=== PATIENT | male | born 1995 | race Two or more races ===

== ENCOUNTER 2020-04-28 14:06 | Outpatient (REF) | payer OTHER, SELFPAY ==
[2020-04-28 14:40] LABS: COVID-19 Test Negative (Negative)
== END 2020-04-28 14:07 | disposition home or self-care (01) ==
LOC: HO.EMPCOV 14:06
PROVIDERS: Visit Provider Internal Medicine
DX: Z20.828 Contact with and (suspected) exposure to other viral communicable diseases (principal)
CPT/HCPCS: 87635; C9803

== ENCOUNTER 2020-05-05 09:27 | Outpatient (REF) | payer OTHER, SELFPAY ==
[2020-05-05 09:46] LABS: COVID-19 Test Negative (Negative)
== END 2020-05-05 09:28 | disposition home or self-care (01) ==
LOC: HO.EMPCOV 09:27
PROVIDERS: Visit Provider Internal Medicine
DX: Z20.828 Contact with and (suspected) exposure to other viral communicable diseases (principal)
CPT/HCPCS: 87635; C9803

== ENCOUNTER 2020-05-12 09:31 | Outpatient (REF) | payer OTHER, SELFPAY ==
[2020-05-12 09:45] LABS: COVID-19 Test Positive (Negative)
== END 2020-05-12 09:32 | disposition home or self-care (01) ==
LOC: HO.EMPCOV 09:31
PROVIDERS: PCP Internal Medicine; Visit Provider Internal Medicine
DX: Z20.828 Contact with and (suspected) exposure to other viral communicable diseases (principal)
CPT/HCPCS: 87635; C9803

== ENCOUNTER 2020-06-18 09:37 | Outpatient (REF) | payer OTHER, SELFPAY ==
[2020-06-20 11:06] LABS: SARS-COV-2 PCR UMBRL NEGATIVE
== END 2020-06-18 09:38 | disposition home or self-care (01) ==
LOC: HO.LAB 09:37
PROVIDERS: Visit Provider Internal Medicine
DX: Z20.822 Contact with and (suspected) exposure to COVID-19 (principal)
CPT/HCPCS: 36415; C9803; U0003

== ENCOUNTER 2020-07-28 09:43 | Outpatient (REF) | payer OTHER, SELFPAY ==
[2020-07-28 10:13] LABS: COVID-19 Test Negative (Negative)
== END 2020-07-28 09:44 | disposition home or self-care (01) ==
LOC: HO.EMPCOV 09:43
PROVIDERS: Visit Provider Internal Medicine
DX: Z20.822 Contact with and (suspected) exposure to COVID-19 (principal)
CPT/HCPCS: 36415; 87635; C9803

== ENCOUNTER 2020-12-01 21:56 | Emergency (ER) | payer OTHER, SELFPAY ==
[2020-12-01 22:15] VITALS: BP 137/83; PULSE 112; RESP 16; TEMP 36.3; O2SAT 96; BMI 40.2
--- NOTE | 2020-12-01 22:20 | ED.ABDPAIN ---
HPI - Abdominal Pain General Chief Complaint: Abdominal Pain Stated Complaint: Abdominal pain Time Seen by Provider: 12/01/20 22:05 Source: patient Mode of arrival: ambulatory Limitations: no limitations History of Present Illness HPI narrative: Patient comes emergency room complaining of abdominal pain. Patient states it is a burning sensation, radiating from the epigastric upwards. Patient denies chest pain. The discomfort started this morning, has been intermittent, worse with meals. Patient denies vomiting or diarrhea, no other abdominal pain other than the epigastric burning. Patient denies UTI symptoms Related Data Previous Rx's Medication Instructions Recorded omeprazole 20 mg PO DAILY #14 cap 12/01/20 Allergies Allergy/AdvReac Type Severity Reaction Status Date / Time No Known Allergies Allergy Unverified 02/14/20 17:01 Review of Systems Review of Systems Constitutional : No Weight loss, No Fever, No Chills, No Night Sweats, No Fatigue, No Malaise ENT/Mouth : No Hearing loss, No Ear Pain, No Nasal Congestion, No Sinus Pain, No Hoarseness, No sore throat, No Rhinorrhea, No Swallowing Difficulty Eyes: No Eye Pain, No Swelling, No Redness, No Foreign Body, No Discharge, No Vision Changes Cardiovascular : No Chest Pain, No SOB, No Dyspnea on Exertion, No Orthopnea, No Edema, No Palpitations Respiratory : No Cough, No Sputum, No Wheezing, No Smoke Exposure, No Dyspnea Gastrointestinal : No Nausea, No Vomiting, No Diarrhea, No Constipation, complaining of epigastric burning sensation, No Hematochezia, No Melena Genitourinary : no irregular bleeding, No Dysuria, No Urinary Frequency, No Hematuria, No Urinary Incontinence, No Urgency, No Flank Pain, No Urinary Flow Changes, No Hesitancy Musculoskeletal : No joint pain, No Myalgias, No Joint Swelling Skin : No Skin Lesions, No rash Neuro : No Weakness, No Numbness, No Paresthesias, No Loss of Consciousness, No Dizziness, No Headache Psych : No Anxiety/Panic, No Depression, No SI/HI/AH/VH, No Social Issues, Heme/Lymph: No Bruising, No Bleeding,No Lymphadenopathy Endocrine : No Polyuria, No Polydipsia, No Temperature Intolerance Physical Exam Vital Signs: Vital Signs: Last Vital Signs Temp 97.3 F 12/01/20 22:15 Pulse 112 H 12/01/20 22:15 Resp 16 12/01/20 22:15 BP 137/83 12/01/20 22:15 Pulse Ox 96 12/01/20 22:15 Body Mass Index 40.2 Appearance: Alert. Oriented X3. No acute distress. Eyes: Pupils equal, round and reactive to light. ENT: Pharynx normal. Neck: Normal inspection. Neck supple. No lymph nodes noted. No crepitus CVS: Normal heart rate and rhythm. Pulses normal. Normal S1 and S2 Respiratory: No respiratory distress. Breath sounds normal. No Wheezing. No rales Abdomen: Soft and nontender. No rigidity. No distention. negative Wolfe sign, no guarding, negative rebound Skin: Skin warm and dry. Normal skin color. Normal skin turgor. Extremities: No lower extremity edema. No lower extremity edema. No Lacerations. No Rash Neuro: Oriented X 3. No motor deficit. No sensory deficit. Moving all extermities. No slurred speech. Course Course Course Narrative: patient states that he had significant relief with a GI cocktail. Patient has chronic leukocytosis. patient will be started on omeprazole, instructed to follow-up with his primary care physician. MDM - Abdominal Pain Lab Data Result diagrams: 12/01/20 22:34 12/01/20 22:34 Labs: Lab Results 12/01/20 12/01/20 Range/Units 22:34 22:34 WBC 14.8 H (4.8-10.8) X10*3/uL RBC 5.12 (4.60-5.80) X10*6/uL Hgb 14.7 (14.0-18.0) g/dl Hct 44.6 (42-52) % MCV 87.1 (80-98) fL MCH 28.7 (27.0-33.0) pg MCHC 33.0 (31.0-36.0) g/dl RDW 12.7 (11.0-16.0) % Plt Count 413 H (160-400) X10*3/uL MPV 9.3 L (9.4-12.4) fL Immature Gran % (Auto) 0.6 H (0.0-0.4) % Neut % (Auto) 78.6 H (45-73) % Lymph % (Auto) 13.9 L (20-40) % [place] % (Auto) 5.1 (2-11) % Eos % (Auto) 1.5 (0-4) % Baso % (Auto) 0.3 (0-2) % Lymph # (Auto) 2.1 (1.2-4.9) X10*3/uL [place] # (Auto) 0.8 (0.1-1.2) X10*3/uL Eos # (Auto) 0.2 (0.0-0.4) X10*3/uL Baso # (Auto) 0.0 (0.0-0.2) X10*3/uL Abs Immat Gran (auto) 0.09 H (0.00-0.03) X10*3/uL Absolute Neuts (auto) 11.6 H (2.0-8.3) X10*3/uL Absolute Nucleated RBC 0.000 (0.0-0.012) X10*3/uL Nucleated RBC % (auto) 0.0 (0.0-0.2) /100WBC Sodium 139 (135-145) mmol/L Potassium 3.9 (3.3-5.1) mmol/L Chloride 104 (96-108) mmol/L Carbon Dioxide 23 (22-29) mmol/L Anion Gap 16 (12-20) BUN 10 (9-16) mg/dL Creatinine 0.98 (0.5-1.4) mg/dL Estim Creat Clear Calc 140.6 Estimated GFR > 60 Random Glucose 116 H (60-115) mg/dL Calcium 10.1 (8.4-10.2) mg/dL Total Bilirubin 0.7 (0.0-1.0) mg/dL Direct Bilirubin 0.2 (0.0-0.5) mg/dL AST 19 (5-37) U/L ALT 34 (0-40) U/L Alkaline Phosphatase 68 (39-117) U/L Total Protein 8.9 H (6.5-8.0) g/dL Albumin 4.4 (3.5-5.0) g/dL Lipase 26 (8-78) U/L Discharge Plan Discharge Clinical Impression: Gastritis Qualifiers: Gastritis type: unspecified gastritis Chronicity: acute Gastritis bleeding: without bleeding Qualified Code(s): K29.00 - Acute gastritis without bleeding Patient Disposition: Home, Self-Care Instructions: Gastritis (ED), Diet for Stomach Ulcers and Gastritis (ED) Additional Instructions: Please follow-up with your primary care physician tomorrow. If you have any worsening or new symptoms, please return to the emergency room or call 911 Prescriptions: New omeprazole 20 mg capsule,delayed release(DR/EC) 20 mg PO DAILY Qty: 14 RF: 0 PMFSH Past Medical History Medical History No known health problems Surgical History No significant past surgical history Social History Social History Patient Tobacco Use Status: Current someday Tobacco user Use of substances other than those prescribed or required for medical reasons: No Advance Directives: No
[2020-12-01] MEDS: Lidocaine HCl Viscous 2 % 15 ML SOLUTION MUCOUS MEM (22:28)
[2020-12-01] MEDS: Famotidine 20 MG TABLET PO (22:28)
[2020-12-01] MEDS: Magnesium Hydrox/Alum Hydrox 30 ML ORAL.SUSP PO (22:28)
[2020-12-01 22:39] LABS: MANUAL DIFF FLAG NO
[2020-12-01 22:40] LABS: Basophils Percent Auto 0.3 % (0-2); Eosinophils Absolute Auto 0.2 X10*3/uL (0.0-0.4); Eosinophils Percent Auto 1.5 % (0-4); Hematocrit 44.6 % (42-52); Hemoglobin 14.7 g/dl (14.0-18.0); Imm Gran Abs Auto 0.09 X10*3/uL (0.00-0.03); Imm Gran Pct Auto 0.6 % (0.0-0.4); Lymphocytes Absolute Auto 2.1 X10*3/uL (1.2-4.9); Lymphocytes Percent Auto 13.9 % (20-40); Mean Corpuscular Hemoglobin 28.7 pg (27.0-33.0); Mean Corpuscular Volume 87.1 fL (80-98); Mean Platelet Volume 9.3 fL (9.4-12.4); Monocytes Absolute Auto 0.8 X10*3/uL (0.1-1.2); Monocytes Percent Auto 5.1 % (2-11); Neutrophils Absolute Auto 11.6 X10*3/uL (2.0-8.3); Neutrophils Percent Auto 78.6 % (45-73); Platelet Count 413 X10*3/uL (160-400); Red Blood Count 5.12 X10*6/uL (4.60-5.80); Red Cell Distribution Width 12.7 % (11.0-16.0); White Blood Count 14.8 X10*3/uL (4.8-10.8)
[2020-12-01 23:03] LABS: Alanine Aminotransferase 34 U/L (0-40); Albumin Level 4.4 g/dL (3.5-5.0); Alkaline Phosphatase 68 U/L (39-117); Anion Gap 16 (12-20); Aspartate Amino Transferase 19 U/L (5-37); Bilirubin Direct 0.2 mg/dL (0.0-0.5); Bilirubin Total 0.7 mg/dL (0.0-1.0); Blood Urea Nitrogen 10 mg/dL (9-16); Calcium 10.1 mg/dL (8.4-10.2); Carbon Dioxide 23 mmol/L (22-29); Chloride 104 mmol/L (96-108); Creatinine Clr Calc Pharmacy 140.6; Estimated Glomerular Filt Rate > 60; Glucose Random 116 mg/dL (60-115); Lipase 26 U/L (8-78); Potassium 3.9 mmol/L (3.3-5.1); Sodium 139 mmol/L (135-145); Total Protein 8.9 g/dL (6.5-8.0)
== END 2020-12-02 00:04 | disposition home or self-care (01) ==
PROVIDERS: Emergency Provider Emergency Medicine; PCP Internal Medicine
DX: K29.00 Acute gastritis without bleeding (principal); D72.829 Elevated white blood cell count, unspecified
CPT/HCPCS: 36415; 80048; 80076; 83690; 85025; 99283

== ENCOUNTER 2020-12-12 08:47 | Outpatient (REF) | payer OTHER, SELFPAY ==
--- NOTE | ~2020-12-12 | FL_ITS ---
EXAMINATION: XR GI SERIES CLINICAL INFORMATION: Peptic ulcer disease COMPARISON: None TECHNIQUE: Upper GI was performed using thin and thick barium and effervescent granules FINDINGS: There is mild gastroesophageal reflux. The esophagus is otherwise normal appearing. No esophageal hernia is seen. The stomach is normal-appearing. There is mucosal irregularity of the duodenal bulb, irregular shape and the duodenal bulb never fully distends with air. Appearance is questionable for duodenal bulb ulcer. FLUOROSCOPY TIME: 1.2 min DOSE AREA PRODUCT: 19 manriquez per centimeter squared. 26 saved fluoroscopic images FL/FL upper GI series IMPRESSION: Question duodenal bulb ulcer. Mild gastroesophageal reflux.
== END 2020-12-12 08:48 | disposition home or self-care (01) ==
LOC: HO.XRAY 08:47
PROVIDERS: PCP Internal Medicine; Visit Provider Internal Medicine
DX: K27.9 Peptic ulcer, site unspecified, unspecified as acute or chronic, without hemorrhage or perforation (principal)
CPT/HCPCS: 74240

== ENCOUNTER 2020-12-30 10:12 | Outpatient (REF) | payer OTHER, SELFPAY ==
[2020-12-30 10:14] LABS: MANUAL DIFF FLAG NO
[2020-12-30 10:52] LABS: Basophils Absolute Auto 0.1 X10*3/uL (0.0-0.2); Basophils Percent Auto 0.6 % (0-2); Eosinophils Absolute Auto 0.3 X10*3/uL (0.0-0.4); Eosinophils Percent Auto 2.6 % (0-4); Hematocrit 42.2 % (42-52); Hemoglobin 13.8 g/dl (14.0-18.0); Imm Gran Abs Auto 0.09 X10*3/uL (0.00-0.03); Imm Gran Pct Auto 0.9 % (0.0-0.4); Lymphocytes Percent Auto 29.7 % (20-40); Mean Corpuscular HGB Conc 32.7 g/dl (31.0-36.0); Mean Corpuscular Hemoglobin 29.4 pg (27.0-33.0); Mean Corpuscular Volume 89.8 fL (80-98); Mean Platelet Volume 10.6 fL (9.4-12.4); Monocytes Absolute Auto 0.7 X10*3/uL (0.1-1.2); Monocytes Percent Auto 7.1 % (2-11); Neutrophils Percent Auto 59.1 % (45-73); Platelet Count 383 X10*3/uL (160-400); Red Cell Distribution Width 12.6 % (11.0-16.0); White Blood Count 10.1 X10*3/uL (4.8-10.8)
[2020-12-30 11:02] LABS: Glucose Urine UA NEG (NEG); Leukocyte Esterase Urine NEG (NEG); Nitrite Urine NEG (NEG); Specific Gravity - Urine >= 1.030 (1.005-1.025); Urine Blood NEG (NEG); Urine Ketones NEG (NEG); Urine Protein TRACE MG/DL (NEG-TRACE)
[2020-12-30 11:04] LABS: Appearance Urine CLEAR; Color Urine YELLOW
[2020-12-30 11:23] LABS: Alanine Aminotransferase 29 U/L (0-40); Albumin Level 4.2 g/dL (3.5-5.0); Alkaline Phosphatase 62 U/L (39-117); Anion Gap 14 (12-20); Aspartate Amino Transferase 19 U/L (5-37); Bilirubin Total 0.3 mg/dL (0.0-1.0); Blood Urea Nitrogen 14 mg/dL (9-16); Calcium 9.4 mg/dL (8.4-10.2); Carbon Dioxide 27 mmol/L (22-29); Chloride 103 mmol/L (96-108); Cholesterol 129 mg/dL; Estimated Glomerular Filt Rate > 60; Glucose Fasting 88 mg/dL (60-99); HDL Cholesterol 29 mg/dL; LDL Cholesterol Calculated 75 mg/dl; Potassium 4.7 mmol/L (3.3-5.1); Sodium 139 mmol/L (135-145); Total Protein 8.2 g/dL (6.5-8.0); Triglycerides 128 mg/dL
== END 2020-12-30 10:13 | disposition home or self-care (01) ==
LOC: HO.LNP 10:12
PROVIDERS: Visit Provider Internal Medicine
DX: Z00.00 Encounter for general adult medical examination without abnormal findings (principal); E78.6 Lipoprotein deficiency; D72.829 Elevated white blood cell count, unspecified
CPT/HCPCS: 80053; 80061; 81003; 85025

== ENCOUNTER 2021-04-29 11:58 | Day surgery (SDC) | payer OTHER, SELFPAY ==
--- NOTE | 2021-04-28 14:50 | P.CONAN_ITS ---
Documented by User: Sara Ariza NP 04/28/21 14:51 HPI - Anesthesia Eval Consult details Narrative: 25yo M for Upper Endoscopy [facility] Past Medical History Medical History No known health problems Surgical History Surgical History No significant past surgical history Social History Social History Patient Tobacco Use Status: Current someday Tobacco user Use of substances other than those prescribed or required for medical reasons: No Are you DNR?: No Advance Directives: No Advance Directives Information Provided: Yes Recently lost weight without trying: Yes How much weight loss: 14-23 pounds Nutrition Risks: No Nutritional Risk Meds Allergies Allergy/AdvReac Type Severity Reaction Status Date / Time No Known Allergies Allergy Unverified 02/14/20 17:01 Exam Exam Date and Time: April 28, 2021 1450 Pertinent Lab Results Pertinent Lab Results: Laboratory Tests 12/30/20 12/30/20 07:50 07:50 WBC 10.1 Hgb 13.8 L Hct 42.2 Plt Count 383 Sodium 139 Potassium 4.7 D Chloride 103 Carbon Dioxide 27 BUN 14 Creatinine 0.86 Assessment and Plan Assessment Anesthesia Assessment: Chart Reviewed Documented by User: Eliza De Dios MD 04/29/21 13:04 [facility] Past Medical History Medical History No known health problems Family History Family history of problems with anesthesia: No Surgical History Surgical History No significant past surgical history History of Problems with Anesthesia: No Social History Social History Patient Tobacco Use Status: Current someday Tobacco user Use of substances other than those prescribed or required for medical reasons: No Are you DNR?: No Advance Directives: No Advance Directives Information Provided: Yes Recently lost weight without trying: Yes How much weight loss: 14-23 pounds Nutrition Risks: No Nutritional Risk Meds Allergies Allergy/AdvReac Type Severity Reaction Status Date / Time No Known Allergies Allergy Unverified 02/14/20 17:01 Exam Airway Mallampati Class: I TM Dist: >3cm Neck ROM: Full Heart: rrr Lungs: cta Assessment and Plan Assessment Anesthesia Assessment: Anesthesia Plan Discussed and Chart Reviewed Final Anesthetic Review Family History of Problems with Anesthesia: No History of Problems with Anesthesia: No NPO: Yes ASA Class: II Final Preanesthetic Review: No Changes in Pt Med Stat and Consent Obtained/Reviewed Patient Risk: Intermediate Procedure Risk: Intermediate Anesthetic Plan Anesthetic Plan: MAC: Disposition: Standard PACU
[2021-04-29 12:25] VITALS: BMI 38.7
[2021-04-29 12:35] VITALS: BP 135/85; PULSE 94; RESP 16; TEMP 36.9; O2SAT 96
[2021-04-29] MEDS: Lactated Ringers 1,000 ML 100 ML IVCONT (12:50)
--- NOTE | 2021-04-29 13:11 | MHC.SHP ---
Pre-Procedural Eval Section A Date of Service: 04/29/21 The patient is an INPATIENT: No Changes since office visit: No Cold of Flu in the past 2 weeks, No New Medical Problems, No Changes in Medication and No Patient answered all questions The History & Physical has been completed within 30 days and I have reviewed it.: Yes Section B Chief Complaint: Abnormal Findings, Epigastric Pain Allergies: Allergies Allergy/AdvReac Type Severity Reaction Status Date / Time No Known Allergies Allergy Unverified 02/14/20 17:01 Plan I have reviewed the history and physical and performed a pertinent physical examination on my patient. No changes have occurred unless specified.
--- NOTE | 2021-04-29 13:28 | P.BOP_ITS ---
Brief Operative Note Date of Service: 04/29/21 Pre-op diagnosis: abnormall ugi Post-op diagnosis: same Procedure: upper endoscopy Surgeon: Ethan Peres Anesthesia: MAC Was an Conservation Assistant used for this Procedure?: No Estimated blood loss (mL): 2 Pathology: other (bxs antrum, egj) Condition: stable Disposition: PACU
[2021-04-29 13:31] VITALS: BP 105/63; PULSE 93; RESP 12; TEMP 36.5; O2SAT 96
[2021-04-29 13:46] VITALS: BP 112/68; PULSE 97; RESP 18; TEMP 36.5; O2SAT 96
--- NOTE | 2021-04-29 15:17 | OP_ITS ---
SURGEON: Ethan Peres MD INDICATIONS: Abnormal upper GI series. PREOPERATIVE DIAGNOSIS: POSTOPERATIVE DIAGNOSIS: PROCEDURE PERFORMED: Upper endoscopy with biopsy. ESTIMATED BLOOD LOSS: COMPLICATIONS: ANESTHESIA: ASSISTANTS: SPECIMENS: MEDICATIONS: Monitored anesthesia care. DESCRIPTION OF PROCEDURE: History and physical was performed. The risks and benefits of the procedure were explained to the patient. Informed consent was obtained. The patient was placed in left lateral decubitus position. The Olympus video gastroscope was introduced into the esophagus, stomach, and duodenum. Examination was performed. The scope was removed. He tolerated the procedure well and was taken to Recovery in stable condition. FINDINGS: Esophagus: The esophagus was normal. There was no esophagitis. The EG junction was slightly irregular. This was biopsied. There was no evidence of Marinelli's esophagus. Stomach: The stomach was normal. Antral biopsies were obtained to rule out H pylori. Duodenum: The bulb was carefully examined and showed no evidence of ulceration or scarring. The 2nd portion of the duodenum was examined. The major papilla was identified and the anatomy appeared normal. IMPRESSION: Normal upper endoscopy. RECOMMENDATION: Follow up the biopsy results. MD DAVID Souza/ORI / [id number] MTDD
== END 2021-04-29 14:41 | disposition home or self-care (01) ==
PROVIDERS: PCP Internal Medicine; Visit Provider Internal Medicine Gastroenterology
PROC: 0DJ08ZZ Inspection of Upper Intestinal Tract, Via Natural or Artificial Opening Endoscopic (ICD-10-PCS; CPT 43235; principal; 2021-04-29 13:00)
DX: R93.3 Abnormal findings on diagnostic imaging of other parts of digestive tract (principal); R10.13 Epigastric pain; Z79.899 Other long term (current) drug therapy
CPT/HCPCS: 43239; 88305; 88342; J2250

== ENCOUNTER 2021-06-07 12:34 | Outpatient (REF) | payer OTHER, SELFPAY ==
[2021-06-07 13:33] LABS: COVID-19 Test Negative (Negative)
== END 2021-06-07 12:35 | disposition home or self-care (01) ==
LOC: HO.LAB 12:34
PROVIDERS: Visit Provider Internal Medicine
DX: Z20.822 Contact with and (suspected) exposure to COVID-19 (principal)
CPT/HCPCS: 87635; C9803

== ENCOUNTER 2022-02-26 10:58 | Outpatient (REF) | payer OTHER, SELFPAY ==
[2022-02-26 11:03] LABS: MANUAL DIFF FLAG NO
[2022-02-26 11:55] LABS: Basophils Absolute Auto 0.1 X10*3/uL (0.0-0.2); Basophils Percent Auto 1.1 % (0-2); Eosinophils Absolute Auto 0.2 X10*3/uL (0.0-0.4); Eosinophils Percent Auto 2.3 % (0-4); Hematocrit 41.7 % (42.0-52.0); Hemoglobin 13.7 g/dl (14.0-18.0); Imm Gran Abs Auto 0.08 X10*3/uL (0.00-0.03); Imm Gran Pct Auto 0.9 % (0.0-0.4); Lymphocytes Absolute Auto 3.1 X10*3/uL (1.2-4.9); Lymphocytes Percent Auto 35.3 % (20-40); Mean Corpuscular HGB Conc 32.9 g/dl (31.0-36.0); Mean Corpuscular Hemoglobin 29.3 pg (27.0-33.0); Mean Corpuscular Volume 89.3 fL (80.0-98.0); Mean Platelet Volume 10.3 fL (9.4-12.4); Monocytes Absolute Auto 0.8 X10*3/uL (0.1-1.2); Monocytes Percent Auto 8.6 % (2-11); Neutrophils Absolute Auto 4.6 x10*3/uL (2.0-8.3); Neutrophils Percent Auto 51.8 % (45-73); Platelet Count 427 X10*3/uL (160-400); Red Blood Count 4.67 X10*6/uL (4.60-5.80); Red Cell Distribution Width 12.8 % (11.0-16.0); White Blood Count 8.8 X10*3/uL (4.8-10.8)
[2022-02-26 12:16] LABS: Alanine Aminotransferase 39 U/L (0-40); Albumin Level 4.2 g/dL (3.5-5.0); Alkaline Phosphatase 53 U/L (39-117); Anion Gap 14 (12-20); Aspartate Amino Transferase 25 U/L (5-37); Bilirubin Total 0.3 mg/dL (0.0-1.0); Blood Urea Nitrogen 16 mg/dL (9-16); Calcium 9.4 mg/dL (8.4-10.2); Carbon Dioxide 26 mmol/L (22-29); Chloride 105 mmol/L (96-108); Cholesterol 145 mg/dL; Estimated Glomerular Filt Rate > 60; Glucose Fasting 89 mg/dL (60-99); HDL Cholesterol 31 mg/dL; LDL Cholesterol Calculated 93 mg/dl; Potassium 4.1 mmol/L (3.3-5.1); Sodium 141 mmol/L (135-145); Total Protein 8.5 g/dL (6.5-8.0); Triglycerides 106 mg/dL
== END 2022-02-26 10:59 | disposition home or self-care (01) ==
LOC: HO.LNP 10:58
PROVIDERS: Visit Provider Internal Medicine
DX: Z00.00 Encounter for general adult medical examination without abnormal findings (principal); D72.829 Elevated white blood cell count, unspecified; E78.6 Lipoprotein deficiency
CPT/HCPCS: 80053; 80061; 85025

== ENCOUNTER 2022-03-04 10:51 | Outpatient (REF) | payer OTHER, SELFPAY ==
[2022-03-04 11:41] LABS: Appearance Urine Clear; Color Urine Yellow; Glucose Urine UA Negative (Negative); Leukocyte Esterase Urine Negative (Negative); Nitrite Urine Negative (Negative); PH 6.5 (5.0-9.0); Specific Gravity - Urine 1.015 (1.005-1.025); Urine Blood Negative (Negative); Urine Ketones Negative (Negative); Urine Protein Negative (Neg-Trace)
[2022-03-04 11:48] LABS: Bacteria Urine 4+ (None Seen); Hyaline Casts Urine 0-2 /LPF (0-2); RBC Urine 0-2 /HPF (0-2); Squamous Epithelial Cell Urine 0-2 /HPF (0-2); WBC Urine 0-5 /HPF (0-5)
== END 2022-03-04 10:52 | disposition home or self-care (01) ==
LOC: HO.LNP 10:51
PROVIDERS: Visit Provider Internal Medicine
DX: Z00.00 Encounter for general adult medical examination without abnormal findings (principal)
CPT/HCPCS: 81001

== ENCOUNTER 2022-12-08 15:27 | Emergency (ER) | payer OTHER, SELFPAY ==
--- NOTE | 2022-12-08 15:51 | ED_ITS ---
HPI - General Adult General Chief complaint: Urogenital-Male Stated complaint: Discomfort in the genitals area Time Seen by Provider: 12/08/22 17:54 Source: patient, RN notes reviewed and old records reviewed Mode of arrival: ambulatory History of Present Illness HPI narrative: 27-year-old male with no significant past medical history presenting to the ED complaining of foreskin discomfort/pain, inflammation, and slight discharge x 3 days. Patient admits he is sexually active with 1 partner, denies concern for STI. Reports mild dysuria. Denies appreciable lesions, hematuria, abdominal pain, flank pain Onset (ago): day(s) Related Data Previous Rx's Medication Instructions Recorded omeprazole 20 mg capsule,delayed 20 mg PO DAILY #14 caps 12/01/20 release amoxicillin 500 mg capsule 500 mg PO Q8H #30 caps 07/27/21 cefuroxime axetil 250 mg tablet 250 mg PO BID 7 days #14 tabs 12/08/22 clotrimazole 1 % topical cream 1 appl topical BID 2 weeks #45 12/08/22 grams metronidazole 0.75 % topical gel 1 appl topical BID 7 days #45 grams 12/08/22 Allergies Allergy/AdvReac Type Severity Reaction Status Date / Time No Known Allergies Allergy Unverified 12/08/22 15:54 Review of Systems Review of Systems: Constitutional: No Fever, No Chills ENT/Mouth: No Ear Pain, No Nasal Congestion, No sore throat, No Rhinorrhea, No Swallowing Difficulty Cardiovascular: No Chest Pain, No SOB Respiratory: No Cough, No Sputum Gastrointestinal: No Nausea, No Vomiting, No Diarrhea, No Constipation, No Abdominal pain Genitourinary: + Dysuria, No Urinary Frequency, No Hematuria, No Urinary Incontinence/retention, No Flank Pain Musculoskeletal: No joint pain Skin: + Skin Lesions, No rash Neuro: No Weakness, No Numbness, No Paresthesias Yes all other systems are reviewed and are negative Constitutional: Constitutional: Reports as per [facility] Past Medical History Attestation statement: The following information was validated with the patient. Source: old records reviewed Medical History No known health problems Surgical History No significant past surgical history Social History Social History Patient Tobacco Use Status: Current someday Tobacco user Advance Directives: No Advance Directives Information Provided: Yes Physical Exam ED Vital Signs: Vital Signs - 24 hr 12/08/22 15:52 Temperature 97.7 F Pulse Rate 92 Respiratory Rate 16 Blood Pressure 145/89 H Pulse Oximetry 99 Oxygen Delivery Method Room Air BMI result Body Mass Index 41.5 Const General: cooperative, healthy appearing and no acute distress Orientation/consciousness: patient oriented x3 Limitations: no limitations HENMT Head: Yes normal to inspection and Yes atraumatic Ears: hearing grossly normal bilaterally General nose exam: Normal external nose present Face and sinus: Yes normal facial exam Eyes General: appearance normal, both eyes and all related structures EOM: EOMs intact bilaterally Neck Neck: Yes normal visual inspection and Yes no meningeal signs Resp Effort & Inspection: normal respiratory effort and no respiratory distress Cardio Rate: regular rate GI Inspection: Yes normal to inspection Palpation (GI): Soft to palpation, nontender, no guarding and not rigid Other: + inflamed/irritated for skin with maceration & clear/white discharge. No appreciable lesions. Foreskin partially retractable Penis: uncircumcised Skin Rashes: no rashes Wounds: no wounds Neuro General: patient oriented x3, tone normal and no meningeal signs Gait exam (Neuro): Normal gait present Extrem General: Yes normal to inspection Course Course Course Narrative: This is a rapid medical exam: Additional HPI, ROS, PE not included below will be deferred to primary provider. Patient is a 27-year-old male presenting to the emergency department with complaint of discomfort to foreskin, reports redness and swelling. When he attempts to pull back foreskin to clean it, he feels a tearing sensation. Reports burning worsens with urination. Denies history of DM. He is sexually active. Denies fevers. Area not assessed in triage due to privacy concerns. Plan: UA, CT NG urine -UA appears infected > will treat with antibiotics. Gonorrhea/chlamydia negative Results discussed with patient including worrisome signs and symptoms and strict return precautions, and when to return to the emergency department. They verbalized understanding and feel safe for discharge at this time. Medical Decision Making Medical Decision Making MDM Narrative: 27-year-old male with no significant past medical history presenting to the ED complaining of foreskin discomfort/pain, inflammation, and slight discharge x 3 days. On exam vital signs stable, NAD, nontoxic appearing, physical exam as noted above consistent with balanitis. Concern for UTI vs STI. No indication for surgical emergency/circumcision at this time Plan: UA, CT NG, Topical clotrimazole/metronidazole Please refer to course for remaining clinical decision making, interpretation of labs/imaging results, and discussions with consultants and/or family members. Differential Diagnosis Differential Diagnoses: The differential diagnosis associated with the presentation includes As above Lab Data MDM Lab Attestation statement: I reviewed the patient's lab results. Labs: Lab Results 12/08/22 12/08/22 Range/Units 16:18 16:18 Urine Color Yellow Urine Appearance Clear Urine pH 6.0 (5.0-9.0) Ur Specific [place] >= 1.030 H (1.005-1.025) Urine Protein 100 (2+) H (Neg-Trace) mg/dL Urine Glucose (UA) Negative (Negative) mg/dL Urine Ketones Trace (Negative) mg/dL Urine Blood Small (1+) H (Negative) Urine Nitrite Negative (Negative) Ur Leukocyte Esterase Small (1+) H (Negative) Urine RBC 11-20 H (0-2) /HPF Urine WBC 11-20 H (0-5) /HPF Ur Squamous Epith Cells 0-2 (0-2) /HPF Urine Bacteria None Seen (None Seen) Hyaline Casts 0-2 (0-2) /LPF Chlam trachomat DNA PCR NOT DETECTED (Not Detect.) N.gonorrhoeae DNA (PCR) NOT DETECTED (Not Detect.) External Record Review External record reviewed: Inpatient record, Office record, Outpatient record, Prior outpatient labs, Prior outpatient radiology, Primary care record and Outside ED record Tests considered The following testing was considered but not selected: As above Prescription Management I considered prescription management with: Antibiotic Discharge Plan Discharge Clinical Impression: Balanitis, Acute UTI Patient Disposition: Home, Self-Care Instructions: Urinary Tract Infection in Men (DC), Balanitis (ED) Additional Instructions: You have balanitis. Topical clotrimazole and metronidazole will help treat this, mix in a 1:1 ratio Ceftin is an antibiotic to treat a urine infection please take as prescribed until completion Keep foreskin clean. You did test negative for gonorrhea and chlamydia. However follow-up with [facility] for further STI testing If symptoms persist or worsen, your unable to urinate of worsening swelling, or are unable to retract the foreskin return to the ED Prescriptions: New clotrimazole 1 % cream 1 appl topical BID 14 Days Qty: 45 0RF metronidazole 0.75 % gel 1 appl topical BID 7 Days Qty: 45 0RF cefuroxime axetil 250 mg tablet 250 mg PO BID 7 Days Qty: 14 0RF No Action omeprazole 20 mg capsule,delayed release(DR/EC) 20 mg PO DAILY Qty: 14 0RF amoxicillin 500 mg capsule 500 mg PO Q8H Qty: 30 0RF Referrals: [facility] [Provider Group] Wayne Bain MD [Primary Care Provider] - Stand Alone Forms: Work/School Release Interventions: ED Discharge Assessment Last Done: 12/08/22 18:43 Discharge Date/Time: 12/08/22 18:43
[2022-12-08 15:52] VITALS: BP 145/89; PULSE 92; RESP 16; TEMP 36.5; O2SAT 99; BMI 41.5
[2022-12-08 16:29] LABS: Appearance Urine Clear; Color Urine Yellow; Glucose Urine UA Negative (Negative); Leukocyte Esterase Urine Small (1+) (Negative); Nitrite Urine Negative (Negative); Specific Gravity - Urine >= 1.030 (1.005-1.025); UMIC TRIGGER UACC YES; Urine Blood Small (1+) (Negative); Urine Ketones Trace mg/dL (Negative); Urine Protein 100 (2+) mg/dL (Neg-Trace)
[2022-12-08 16:31] LABS: Bacteria Urine None Seen (None Seen); Hyaline Casts Urine 0-2 /LPF (0-2); Squamous Epithelial Cell Urine 0-2 /HPF (0-2); UACC Culture Trigger YES
[2022-12-08 18:03] LABS: CT PCR NOT DETECTED (Not Detect.); NG PCR NOT DETECTED (Not Detect.)
== END 2022-12-08 18:43 | disposition home or self-care (01) ==
PROVIDERS: Registered Nurse Emergency; Emergency Provider Emergency Medicine Emergency Medical Services; PCP Internal Medicine
DX: N48.1 Balanitis (principal); N39.0 Urinary tract infection, site not specified; B95.1 Streptococcus, group B, as the cause of diseases classified elsewhere
CPT/HCPCS: 0353U; 81001; 87086; 87147; 99282; 99283

== ENCOUNTER 2023-02-08 11:14 | Outpatient (REF) | payer OTHER, SELFPAY ==
[2023-02-08 11:38] LABS: Appearance Urine Clear; Color Urine Yellow; Glucose Urine UA Negative (Negative); Leukocyte Esterase Urine Trace (Negative); Nitrite Urine Negative (Negative); PH 5.5 (5.0-9.0); Specific Gravity - Urine 1.025 (1.005-1.025); UMIC TRIGGER UA YES; Urine Blood Trace (Negative); Urine Ketones Negative (Negative); Urine Protein Trace mg/dL (Neg-Trace)
[2023-02-08 11:45] LABS: Bacteria Urine None Seen (None Seen); Hyaline Casts Urine 0-2 /LPF (0-2); RBC Urine 0-2 /HPF (0-2); Squamous Epithelial Cell Urine 0-2 /HPF (0-2)
== END 2023-02-08 11:15 | disposition home or self-care (01) ==
LOC: HO.LNP 11:14
PROVIDERS: Visit Provider Internal Medicine
DX: R31.9 Hematuria, unspecified (principal)
CPT/HCPCS: 81001; 87086

== ENCOUNTER 2023-03-04 10:53 | Outpatient (REF) | payer OTHER, SELFPAY ==
[2023-03-04 11:17] LABS: Alanine Aminotransferase 32 U/L (0-40); Albumin Level 3.9 g/dL (3.5-5.0); Alkaline Phosphatase 59 U/L (39-117); Anion Gap 13 (12-20); Aspartate Amino Transferase 26 U/L (5-37); Bilirubin Total 0.3 mg/dL (0.0-1.0); Blood Urea Nitrogen 11 mg/dL (9-16); Carbon Dioxide 24 mmol/L (22-29); Chloride 110 mmol/L (96-108); Cholesterol 127 mg/dL (<200); Estimated Glomerular Filt Rate > 60; Glucose Fasting 91 mg/dL (60-99); HDL Cholesterol 36 mg/dL (>40); LDL Cholesterol Calculated 69 mg/dL (<100); Potassium 4.1 mmol/L (3.3-5.1); Sodium 143 mmol/L (135-145); Total Protein 8.2 g/dL (6.5-8.0); Triglycerides 111 mg/dL (<150)
== END 2023-03-04 10:54 | disposition home or self-care (01) ==
LOC: HO.LNP 10:53
PROVIDERS: Visit Provider Internal Medicine
DX: Z00.00 Encounter for general adult medical examination without abnormal findings (principal); D72.829 Elevated white blood cell count, unspecified; E78.6 Lipoprotein deficiency
CPT/HCPCS: 80053; 80061; 85025

== ENCOUNTER 2023-05-12 14:36 | Outpatient (AMB) | payer OTHER, SELFPAY ==
--- NOTE | 2023-05-12 14:49 | A.OFFVIS_ITS ---
Intake Vital Signs 3 05/12/23 15:00 Height 5 ft 7 in Weight 257 lb BMI 40.2 BP 145/87 H Blood Pressure Location Lt brachial Position Sitting Pulse 80 Intake Visit Reasons: Infected R great toe Intake Note: Patient is seen in office for evaluation and treatment of infected right great toe. 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 This began in the summer time after having a pedicure. He started having pain and swelling on the medial nail fold but now has pain and swelling in both the medial and lateral nail fold. He was seen by Dr. Bain today and started on oral antibiotics. He has been on antibiotics in the past without significant improvement. The pain seems to increase with walking and prolonged standing. He works in [employer] and is on his feet constantly. He denies fever or chills. [facility] Medical History No known health problems Surgical History No significant past surgical history Social History Patient Tobacco Use Status: Current someday Tobacco user Review of Systems Const All systems reviewed & are unremarkable except as noted in HPI and below Physical Exam Const General: cooperative and no acute distress Nutritional Appearance: well nourished Orientation/consciousness: patient oriented x3 Limitations: no limitations HEENT Head: Yes normocephalic and Yes atraumatic Ears: hearing grossly normal bilaterally Resp Effort & Inspection: normal respiratory effort, no audible wheezes, no cough and no respiratory distress Cardio Jugular venous distension: no JVD GI Inspection: Yes normal to inspection Skin Other: Warm, dry, no rash Neuro General: patient oriented x3 Extrem Other: Right great toe with evidence of both medial lateral ingrown nail segment with surrounding area of erythema and purulent discharge. Nail fold is tender to palpation. No tenderness noted in the proximal nail fold. General: Yes no clubbing, cyanosis or edema Ankle/foot/toe images: 2 1. Right great toe nail infection Assessment & Plan Assessment & Plan (1) Abscess of great toe of right foot: Code(s): L02.611 - Cutaneous abscess of right foot Plan 27-year-old male patient presenting with a painful swollen right great toe found to have an ingrown nail on both the medial and lateral nail folds. There is significant amount of purulence discharge in erythema which would make nail removal under local anesthesia very difficult. I recommended nail excision under MAC plus local as soon as possible. After discussion of the procedure, risks, and benefits, he consents to the excision of right great toe nail. Coding Level of Care Code New Pt Level 4 (56144) Diagnoses Abscess of great toe of right foot L02.611
[2023-05-12 15:00] VITALS: BP 145/87; PULSE 80; BMI 40.2
== END 2023-05-12 15:27 | disposition home or self-care (01) ==
PROVIDERS: PCP Internal Medicine; Referring Provider Internal Medicine; Visit Provider Surgery
DX: L02.611 Cutaneous abscess of right foot (principal)
CPT/HCPCS: 99204

== ENCOUNTER → 2023-05-12 14:36 | Outpatient (BNVA) | payer OTHER, SELFPAY | PROVIDERS: PCP Internal Medicine; Referring Provider Internal Medicine; Visit Provider Surgery | DX: L02.611 Cutaneous abscess of right foot (principal) | CPT/HCPCS: 99202 ==

== ENCOUNTER 2023-05-16 08:00 | Day surgery (SDC) | payer OTHER, SELFPAY ==
[2023-05-16 08:50] VITALS: BMI 40.3
[2023-05-16 09:13] VITALS: BP 134/84; PULSE 97; RESP 16; TEMP 36.6; O2SAT 96
[2023-05-16] MEDS: Lactated Ringers 1,000 ML 100 ML IVCONT (09:18)
--- NOTE | 2023-05-16 09:19 | HO.ANESPROP2 ---
HPI - Anesthesia Eval Consult details Narrative: excision right great toe nail , morbid obesity , heavy alchol and heavy vaping nicotine Anesthesia Pre-Procedure Meds Is the patient on any of the following meds?: Any other SGL-1 drugs or drugs that delay gastric emptying If Yes to any meds - educate patient: Pt education - increased risk of aspiration PMFSH Active Problems Active Problems: All Active Problems (Updated 05/16/23 @ 08:48 by Liz Maradiaga RN) Abscess of great toe of right foot (Acute) Strep pharyngitis (Acute) Family History Family history of problems with anesthesia: No Surgical History Surgical History H/O adenoidectomy History of endoscopy History of Problems with Anesthesia: No Social History Social History Patient Tobacco Use Status: Current everyday Tobacco user Tobacco use type: Smokeless Tobacco Use of substances other than those prescribed or required for medical reasons: No Are you DNR?: No Advance Directives: No Advance Directives Information Provided: Yes Meds Allergies Allergy/AdvReac Type Severity Reaction Status Date / Time No Known Allergies Allergy Verified 05/16/23 08:43 Active Medications: Current Medications Lactated Ringer's (Lr) 1,000 mls @ 100 mls/hr IVCONT .Q10H BURKE Last Admin: 05/16/23 09:18 Dose: 100 mls/hr Home Medications Medication Instructions Recorded Confirmed Last Taken Type cephalexin 500 mg capsule 500 mg PO BID 05/16/23 05/16/23 05/15/23 History Exam Height,Weight and Vital Signs: Height 5 ft 7 in Weight 116.743 kg Last Vital Signs Temp 97.8 F 05/16/23 09:13 Pulse 97 05/16/23 09:13 Resp 16 05/16/23 09:13 BP 134/84 05/16/23 09:13 Pulse Ox 96 05/16/23 09:13 O2 Del Method Room Air 05/16/23 09:13 Airway Mallampati Class: II TM Dist: >3cm Neck ROM: Full Heart: rrr Lungs: cta Assessment and Plan Assessment Anesthesia Assessment: Anesthesia Plan Discussed, Smoking Cess. Discussed and Chart Reviewed Final Anesthetic Review Family History of Problems with Anesthesia: No History of Problems with Anesthesia: No NPO: Yes ASA Class: III (heavy vaping alcohol, morbid obesity) Final Preanesthetic Review: No Changes in Pt Med Stat, Meds/Allgs Chart Reviewed, Consent Obtained/Reviewed and Anes Risks/Benef Reviewed Patient Risk: Intermediate Procedure Risk: Low Anesthetic Plan Anesthetic Plan: GA and MAC: Disposition: Standard PACU
--- NOTE | 2023-05-16 11:27 | MHC.SHP ---
Pre-Procedural Eval Section A Date of Service: 05/16/23 The patient is an INPATIENT: No Changes since office visit: Yes Patient answered all questions; No Cold of Flu in the past 2 weeks, No New Medical Problems and No Changes in Medication The History & Physical has been completed within 30 days and I have reviewed it.: Yes Section B Chief Complaint: Cellulitis of right toe Allergies: Allergies Allergy/AdvReac Type Severity Reaction Status Date / Time No Known Allergies Allergy Verified 05/16/23 08:43 Plan Diagnosis/Plan: Unchanged I have reviewed the history and physical and performed a pertinent physical examination on my patient. No changes have occurred unless specified. Time Spent With Patient Time: Total time managing care of this patient today ____ minutes.
--- NOTE | 2023-05-16 11:53 | P.OP_ITS ---
Operative Note Operative Note Date of Service: 05/16/23 Narrative: Preoperative diagnosis:Ingrown toenail right great toe Postoperative diagnosis: same Procedure: Excision right great toe nail Surgeon: Anthony Gipson MD Hand Violin Maker: Ena Csepedes PA-C Anesthesia: MAC plus local Indications for procedure: 27-year-old male patient presenting with an infected ingrown right great toenail involving both the medial and lateral nail folds. On examination he is exquisitely tender at both locations with no evidence of an abscess in the proximal fold. Operative findings: Ingrown segments in both the medial and lateral nail fold. Specimen: Right great toenail Estimated blood loss: Less than 2 mL Complications: None Procedure details: Patient was brought to the OR placed in a supine position. After administering light sedation patient's right great toe and foot were prepped with Betadine and draped in a sterile fashion. A surgical time-out was called the consent confirmed. Patient received preoperative antibiotics and Venodyne boots were in place. Local anesthesia was infiltrated with a digital block involving the 1st toe. Additional local was placed at the proximal nail fold. Beginning on the lateral nail fold a hemostat was inserted just below the nail matrix over the nail bed from distal to proximal. The nail was then excised using a curved Kate scissors. The nail bed was then cauterized using electrocautery. In a similar fashion the medial nail fold was elevated by inserting a hemostat below the nail matrix and removing the ingrown portion. This was then excised using a curved Kate scissor. The nail bed was then cauterized using electrocautery. Wounds were then packed with iodoform gauze followed by cotton and 1 in Barbara. The patient tolerated the procedure well. Sponge, instrument, and needle counts reported as correct. The patient was transferred to PACU in stable condition.
[2023-05-16 12:00] VITALS: BP 132/73; PULSE 88; RESP 16; TEMP 36.2; O2SAT 95
[2023-05-16 12:15] VITALS: BP 129/75; PULSE 87; RESP 14; O2SAT 97
[2023-05-16 12:30] VITALS: BP 126/76; PULSE 83; RESP 16; TEMP 36.4; O2SAT 97
== END 2023-05-16 13:27 | disposition home or self-care (01) ==
PROVIDERS: PCP Internal Medicine; Visit Provider Surgery
PROC: (CPT 11750; principal; 2023-05-16 10:40)
DX: L60.0 Ingrowing nail (principal); L03.031 Cellulitis of right toe
CPT/HCPCS: 11750; 88304; 88312; J0690; J2250; J2704; J2795; J3010

== ENCOUNTER → 2023-05-16 08:00 | Outpatient (BNV) | payer OTHER, SELFPAY | PROVIDERS: PCP Internal Medicine; Visit Provider Surgery | DX: L60.0 Ingrowing nail (principal); L03.031 Cellulitis of right toe | CPT/HCPCS: 11750 ==

== ENCOUNTER 2023-05-19 18:47 | Emergency (ER) | payer OTHER, SELFPAY ==
[2023-05-19 19:25] VITALS: BP 137/86; PULSE 94; RESP 14; TEMP 36.9; O2SAT 96; BMI 39.9
--- NOTE | 2023-05-19 19:25 | ED_ITS ---
HPI - General Adult General Chief complaint: Extremity Problem Stated complaint: Toe is purple after surgery on 05/16 Time Seen by Provider: 05/19/23 19:35 Source: patient, RN notes reviewed and old records reviewed Mode of arrival: ambulatory History of Present Illness HPI narrative: 27-year-old male with a past medical history of right great toe ingrown toenail excision by Dr. Gipson on 05/16/23 presenting to the ED complaining of purple/dark discoloration around site. Also states daughter dropped cellphone on great toe. Denies other injury, numbness/tingling, fever/chills, drainage. Reports doing dressing changes and applying topical antibiotic/taking oral antibiotics as previously prescribed Related Data Home Medications Medication Instructions Recorded Confirmed cephalexin 500 mg capsule 500 mg PO BID 05/16/23 05/16/23 Previous Rx's Medication Instructions Recorded bacitracin 500 unit/gram topical 1 appl topical Q8H #14 grams 05/16/23 ointment oxycodone 5 mg tablet 5 mg PO Q6H PRN pain (scale score 05/16/23 7-10) #5 tabs Allergies Allergy/AdvReac Type Severity Reaction Status Date / Time No Known Allergies Allergy Verified 05/19/23 19:33 Review of Systems 2 Review of Systems: Constitutional: No Fever, No Chills ENT/Mouth: No Ear Pain, No Nasal Congestion, No sore throat, No Rhinorrhea, No Swallowing Difficulty Cardiovascular: No Chest Pain, No SOB Respiratory: No Cough Musculoskeletal: No joint pain, No Myalgias, No Joint Swelling Skin: +Skin Lesions, No rash Neuro: No Weakness, No Numbness, No Paresthesias Yes all other systems are reviewed and are negative Constitutional: Constitutional: Reports as per [facility] Past Medical History Attestation statement: The following information was validated with the patient. Source: old records reviewed Surgical History History of surgery (05/16/23) H/O adenoidectomy History of endoscopy Social History Social History Patient Tobacco Use Status: Current everyday Tobacco user Tobacco use type: Smokeless Tobacco Physical Exam ED Vital Signs: Vital Signs - 24 hr 05/19/23 19:25 Temperature 98.5 F Pulse Rate 94 Respiratory Rate 14 Blood Pressure 137/86 Pulse Oximetry 96 Oxygen Delivery Method Room Air BMI result Body Mass Index 39.9 Const General: cooperative, healthy appearing and no acute distress Orientation/consciousness: patient oriented x3 Limitations: no limitations HENMT Head: Yes normal to inspection and Yes atraumatic Ears: hearing grossly normal bilaterally General nose exam: Normal external nose present Face and sinus: Yes normal facial exam Eyes General: appearance normal, both eyes and all related structures EOM: EOMs intact bilaterally Neck Neck: Yes normal visual inspection and Yes no meningeal signs Resp Effort & Inspection: normal respiratory effort and no respiratory distress Cardio Rate: regular rate Skin Rashes: no rashes Neuro General: patient oriented x3, tone normal and no meningeal signs Cranial nerves: Yes CN's II-XII intact bilaterally Extrem Other: Appropriate wound healing as noted above. Please refer to image. Dry blood noted to outer edges. No active bleeding. No erythema/warmth, fluctuance/induration or drainage. No malodor Medical Decision Making Medical Decision Making MDM Narrative: 27-year-old male with a past medical history of right great toe ingrown toenail excision by Dr. Gipson on 05/16/23 presenting to the ED complaining of purple/dark discoloration around site. On exam vital signs stable, NAD, nontoxic appearing, physical exam as noted above with appropriate wound healing s/p ingrown toenail removal. Area cleaned and dressing applied with Xeroform Recommended close follow-up with Dr. Gipson and to continue previously instructed dressing changes and antibiotics Please refer to course for remaining clinical decision making, interpretation of labs/imaging results, and discussions with consultants and/or family members. Results discussed with patient including worrisome signs and symptoms and strict return precautions, and when to return to the emergency department. They verbalized understanding and feel safe for discharge at this time. Differential Diagnosis Differential Diagnoses: The differential diagnosis associated with the presentation includes As above External Record Review External record reviewed: Inpatient record, Office record, Outpatient record, Prior outpatient labs, Prior outpatient radiology, Primary care record and Outside ED record Tests considered The following testing was considered but not selected: As above Prescription Management I considered prescription management with: Pain Medication and Antibiotic Discharge Plan Discharge Clinical Impression: Encounter for post surgical wound check Patient Disposition: Home, Self-Care Instructions: Ingrown Nail (ED) Additional Instructions: please continue daily dressing changes and previously recommended wound care Call surgeon for follow-up If area begins to look infected, is red, there is drainage you have fever return to the ED Prescriptions: No Action cephalexin 500 mg capsule 500 mg PO BID oxycodone 5 mg tablet 5 mg PO Q6H PRN (Reason: pain (scale score 7-10)) Qty: 5 0RF Rx Instructions: Partial Fill upon patient request. bacitracin 500 unit/gram ointment 1 appl topical Q8H Qty: 14 0RF Rx Instructions: Apply to great toe at least daily Referrals: Wayne Bani MD [Primary Care Provider] - Anthony Gipson MD [Physician] -
== END 2023-05-19 20:06 | disposition home or self-care (01) ==
PROVIDERS: Emergency Provider Emergency Medicine; PCP Internal Medicine
DX: L60.0 Ingrowing nail (principal); Z48.00 Encounter for change or removal of nonsurgical wound dressing
CPT/HCPCS: 99282

== ENCOUNTER 2023-05-26 14:43 | Outpatient (AMB) | payer OTHER, SELFPAY ==
[2023-05-26 14:46] VITALS: BP 135/73; PULSE 83; BMI 40.2
--- NOTE | 2023-05-26 14:46 | MHC.OFFVIS ---
Intake Vital Signs 05/26/23 14:46 Height 5 ft 7 in Weight 257 lb BMI 40.2 BP 135/73 Blood Pressure Location Rt brachial Position Sitting Pulse 83 Intake Visit Reasons: S/P exc rt great toenail Intake Note: Patient is seen in office for post op assessment post excision of right great toe nail on 05/16/23. Pt c/o: healing well. Denies bleeding, oozing, pain. Outside Sales Associate Required: No Accompanied by: Self / Same As Patient Allergies No Known Allergies Allergy (Verified 05/26/23 14:47) HPI HPI Comments History of Present Illness Details Patient returns 1 week following excision of ingrown toenail involving both the medial and lateral segments of the nail. He tolerated the procedure well and returns today for wound check. He reports only a small amount of residual discharge. He continues to keep the wound covered and has been applying the bacitracin ointment. He return to work on Tuesday05/24/2023. [facility] Surgical History History of surgery (05/16/23) H/O adenoidectomy History of endoscopy Social History Patient Tobacco Use Status: Current everyday Tobacco user Tobacco use type: Smokeless Tobacco Physical Exam Vital Signs: Last Vital Signs Pulse 83 05/26/23 14:46 BP 135/73 05/26/23 14:46 BMI result Body Mass Index 40.2 Const General: comfortable Nutritional Appearance: well nourished Orientation/consciousness: patient oriented x3 Neuro General: patient oriented x3 Extrem Other: Right great toe: Healing nail bed located both the medial lateral nail fold with no granulation. No evidence of wound infection. Dry sterile bandage applied. Assessment & Plan Assessment & Plan (1) Abscess of great toe of right foot: Code(s): L02.611 - Cutaneous abscess of right foot Plan 27-year-old male status post excision of ingrown toenail segments involving the medial and lateral right great toe nail fold. He tolerated the procedure well and his wounds are healing nicely. He should continue to apply applied a dry sterile dressing but may stop the bacitracin at this time. He should follow up as needed. Coding Level of Care Code Global (46991) Diagnoses Abscess of great toe of right foot L02.611
== END 2023-05-26 14:54 | disposition home or self-care (01) ==
PROVIDERS: PCP Internal Medicine; Visit Provider Surgery
DX: L02.611 Cutaneous abscess of right foot (principal)
CPT/HCPCS: 99024

== ENCOUNTER → 2023-05-26 14:43 | Outpatient (BNVA) | payer OTHER, SELFPAY | PROVIDERS: PCP Internal Medicine; Visit Provider Surgery | DX: Z48.817 Encounter for surgical aftercare following surgery on the skin and subcutaneous tissue (principal); Z98.890 Other specified postprocedural states | CPT/HCPCS: 99212 ==

== ENCOUNTER 2023-06-30 22:26 | Emergency (ER) | payer OTHER, SELFPAY ==
[2023-06-30 22:27] VITALS: BP 141/98; PULSE 74; RESP 20; TEMP 36.1; O2SAT 98; BMI 40.7
--- NOTE | 2023-06-30 23:40 | ED.EAR ---
HPI - Ear Problem General Chief complaint: Ear Problems Stated complaint: ear infection, itchy all over, unsure of rash Time Seen by Provider: 06/30/23 23:12 Source: patient Mode of arrival: ambulatory Limitations: no limitations History of Present Illness HPI Narrative: Patient is a 27-year-old male who presents emergency department for evaluation of left ear pain. Described as an intermittent pulsing sensation, with decreased hearing. He denies any active drainage from the ear. He reports onset to be 2 days ago. Denies associated fevers, chills, sore throat, URI symptoms, cough, rashes or skin lesions. Related Data Home Medications Medication Instructions Recorded Confirmed cephalexin 500 mg capsule 500 mg PO BID 05/16/23 05/16/23 Previous Rx's Medication Instructions Recorded bacitracin 500 unit/gram topical 1 appl topical Q8H #14 grams 05/16/23 ointment amoxicillin 875 mg-potassium 1 tab PO BID #13 tabs 06/30/23 clavulanate 125 mg tablet Allergies Allergy/AdvReac Type Severity Reaction Status Date / Time No Known Allergies Allergy Verified 05/26/23 14:47 Review of Systems Review of Systems: Yes all other systems are reviewed and are negative PMFSH Past Medical History Attestation statement: The following information was validated with the patient. Source: old records reviewed Surgical History History of surgery (05/16/23) H/O adenoidectomy History of endoscopy Social History Social History Patient Tobacco Use Status: Current everyday Tobacco user Tobacco use type: Smokeless Tobacco Physical Exam Vital Signs: Vital Signs: Last Vital Signs Temp 97.0 F 06/30/23 22:27 Pulse 74 06/30/23 22:27 Resp 20 06/30/23 22:27 BP 141/98 H 06/30/23 22:27 Pulse Ox 98 06/30/23 22:27 O2 Del Method Room Air 06/30/23 22:27 BMI result Body Mass Index 40.7 Appearance: Alert.?Oriented to person, place and time. No acute distress.?Normal affect. Eyes: Pupils equal, round and reactive to light.? ENT: Pharynx normal.??Right TM normal. Left TM significantly erythematous with mild bulging Neck: Normal inspection.? Neck supple.??No cervical lymphadenopathy CVS: Heart sounds normal. Normal heart rate and rhythm.? Pulses normal.?? Respiratory: No respiratory distress.? Lung sounds clear to auscultation bilaterally?? Abdomen: Soft and non-tender. Normoactive bowel sounds. Skin: Skin warm and dry.? Normal skin color.? Extremities: No lower extremity edema.? Neuro: Moves all extremities spontaneously. Sensation intact bilaterally. CN II-XII intact. No focal neuro deficits. Ambulates with normal steady gait. Medical Decision Making Medical Decision Making [facility] Narrative: Patient is a 27-year-old male who presents emergency department for evaluation of ear pain. Physical examination is consistent with acute otitis media, no rupture of the TM, no signs of otitis externa, no mastoid tenderness to suggest mastoiditis. He is well-appearing, nontoxic, afebrile without tachycardia. Stable for discharge home, course of antibiotics sent to patient's pharmacy, discussed worrisome signs and symptoms that would warrant re-evaluation in the emergency department. All questions answered. Differential Diagnosis Differential Diagnoses: The differential diagnosis associated with the presentation includes (See narrative above) Prescription Management I considered prescription management with: Antibiotic Discharge Plan Discharge Clinical Impression: Acute otitis media Qualifiers: Laterality: left Recurrence: non-recurrent Spontaneous tympanic membrane rupture: without spontaneous rupture Patient Disposition: Home, Self-Care Instructions: Ear Infection (ED) Additional Instructions: Complete the entire course of antibiotics as prescribed. Do not skipped any doses or stopped taking early even if your symptoms start to feel better. Do not insert anything into the ear such as Q-tips as this can increase the risk of rupture of your ear drum. You can take ibuprofen 200 mg, 3 tablets (600mg) every 6-8 hours as needed for pain, in addition to Tylenol 500 mg, 2 tablets (1,000mg) every 4-6 hours as needed for pain, but not to exceed 3 doses daily (3,000mg).? Prescriptions: New amoxicillin-pot clavulanate 875-125 mg tablet 1 tab PO BID Qty: 13 0RF No Action cephalexin 500 mg capsule 500 mg PO BID bacitracin 500 unit/gram ointment 1 appl topical Q8H Qty: 14 0RF Rx Instructions: Apply to great toe at least daily
[2023-06-30] MEDS: Amoxicillin/Potassium Clav 875 MG TABLET PO (23:59)
== END 2023-07-01 | disposition home or self-care (01) ==
PROVIDERS: Emergency Provider Student in an Organized Health Care Education/Training Program; PCP Internal Medicine
DX: H66.92 Otitis media, unspecified, left ear (principal); H92.02 Otalgia, left ear
CPT/HCPCS: 99283; 99284

== ENCOUNTER 2023-12-20 13:38 | Outpatient (AMB) | payer OTHER, SELFPAY ==
--- NOTE | 2023-12-20 13:57 | A.OFFVIS_ITS ---
Vital Signs 12/20/23 14:03 Height 5 ft 7 in Weight 268 lb BMI 42.0 BP 140/82 H Blood Pressure Location Lt brachial Position Sitting Pulse 91 Intake Visit Reasons: Cellulitis of Rt Toe Intake Note: Patient is seen in office for wound check, following cellulitis of right toe. Pt c/o: nail re-grew and has been getting pus on the right side of the nail for about a week, redness, painful, discomfort with certain foot wear, has to stand due to work, went to urgent care and had 2 course of antbx, all done 23 [employer] Required: No Accompanied by: Self / Same As Patient Allergies No Known Allergies Allergy (Verified 12/20/23 14:03) HPI Comments Details: 20-year-old male patient with a previous history of ingrown toenails mainly in the right great toe, status post excision of both the medial and lateral nail fold of the right great toe, now returning with a recurrent infection in the lateral nail fold of the right great toe. He has undergone several courses of antibiotics and reports having infection drained at a walk-in center. He denies fever or chills and denies any current discharge. [facility] Surgical History History of surgery (05/16/23) H/O adenoidectomy History of endoscopy Social History Patient Tobacco Use Status: Current everyday Tobacco user Tobacco use type: Smokeless Tobacco Review of Systems Const All systems reviewed & are unremarkable except as noted in HPI and below Physical Exam Vital Signs: Last Vital Signs Pulse 91 12/20/23 14:03 BP 140/82 H 12/20/23 14:03 BMI result Body Mass Index 42.0 Const General: comfortable Nutritional Appearance: well nourished Orientation/consciousness: patient oriented x3 Neuro General: patient oriented x3 Extrem Other: Right great toe: The nail matrix has regrown both in the medial and lateral portion of the right great toe. No infection is noted in the medial nail fold however on the lateral nail fold the nail appears to have cut into the skin. Using a forceps this was released and the excess nail trimmed back. No abscess could be identified. The patient tolerated the nail excision without pain. Assessment & Plan Assessment & Plan (1) Abscess of great toe of right foot: Code(s): L02.611 - Cutaneous abscess of right foot Category: Medical Plan Patient underwent excision of the lateral nail fold ingrown nail today. He will return in 1 week for re-evaluation. If this is still causing discomfort he may require a repeat surgical excision of the lateral nail. Coding Level of Care Code Est Pt Level 3 (88756) Diagnoses Abscess of great toe of right foot L02.611
[2023-12-20 14:03] VITALS: BP 140/82; PULSE 91; BMI 42.0
== END 2023-12-20 14:14 | disposition home or self-care (01) ==
PROVIDERS: PCP Internal Medicine; Visit Provider Surgery
DX: L02.611 Cutaneous abscess of right foot (principal)
CPT/HCPCS: 11765; 99213

== ENCOUNTER → 2023-12-20 13:38 | Outpatient (BNVA) | payer OTHER, SELFPAY | PROVIDERS: PCP Internal Medicine; Visit Provider Surgery | DX: L02.611 Cutaneous abscess of right foot (principal); L60.0 Ingrowing nail | CPT/HCPCS: 11765; 99212 ==

== ENCOUNTER 2023-12-29 14:42 | Outpatient (AMB) | payer OTHER, SELFPAY ==
--- NOTE | 2023-12-29 14:59 | A.OFFVIS_ITS ---
Vital Signs 12/29/23 15:05 Height 5 ft 7 in Weight 268 lb BMI 42.0 BP 141/83 H Blood Pressure Location Lt brachial Position Sitting Pulse 98 Intake Visit Reasons: one week f/u Abscess of great toe of right foot Intake Note: Patient is seen in office for one week follow up visit, following abscess of great toe of right foot. Pt c/o:feels pressure on the toe, no pain or discharge Applications Chemist Required: No Accompanied by: Self / Same As Patient Allergies No Known Allergies Allergy (Verified 12/29/23 15:06) HPI Comments Details: Markel returns for follow-up examination of his great toe, right foot. He denies any further pain bleeding or discharge. [facility] Surgical History History of surgery (05/16/23) H/O adenoidectomy History of endoscopy Social History Patient Tobacco Use Status: Current everyday Tobacco user Tobacco use type: Smokeless Tobacco Physical Exam Vital Signs: Last Vital Signs Pulse 98 12/29/23 15:05 BP 141/83 H 12/29/23 15:05 BMI result Body Mass Index 42.0 Extrem Other: Right great toe with no evidence of ingrown toenail at this time there is no evidence of a medial or lateral nail fold abscess. Nontender to palpation. Assessment & Plan Assessment & Plan (1) Abscess of great toe of right foot: Code(s): L02.611 - Cutaneous abscess of right foot Category: Medical Plan 20-year-old male patient with a prior history of ingrown toenail which has subsequently grown out. There is no current evidence of a recurrent ingrown nail. Recommend trimming the nail straight of cross to prevent further ingrown nails. He should soak the foot daily in warm water with Epsom salts. Follow-up as needed. Coding Level of Care Code Est Pt Level 3 (03184) Diagnoses Abscess of great toe of right foot L02.611
[2023-12-29 15:05] VITALS: BP 141/83; PULSE 98; BMI 42.0
== END 2023-12-29 15:15 | disposition home or self-care (01) ==
PROVIDERS: PCP Internal Medicine; Visit Provider Surgery
DX: L02.611 Cutaneous abscess of right foot (principal)
CPT/HCPCS: 99024

== ENCOUNTER → 2023-12-29 14:42 | Outpatient (BNVA) | payer OTHER, SELFPAY | PROVIDERS: PCP Internal Medicine; Visit Provider Surgery | DX: L02.611 Cutaneous abscess of right foot (principal) | CPT/HCPCS: 99212 ==

== ENCOUNTER 2024-03-08 14:58 | Outpatient (AMB) | payer OTHER, SELFPAY ==
--- NOTE | 2024-03-08 15:01 | MHC.OFFVIS ---
Vital Signs 03/08/24 15:05 Height 5 ft 7 in Weight 266 lb 12.149 oz BMI 41.8 Pulse 92 Intake Visit Reasons: Ingrown toenail issue Intake Note: Patient is seen in office for evaluation of an ingrown toe nail. 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 He tried cutting the nail which seems to be aggravating the infection even more. He reports being on his feet for long periods of time which is aggravating the pain as well. He denies any fever or chills. [facility] Surgical History History of surgery (05/16/23) H/O adenoidectomy History of endoscopy Social History Patient Tobacco Use Status: Current everyday Tobacco user Tobacco use type: Smokeless Tobacco Review of Systems Const All systems reviewed & are unremarkable except as noted in HPI and below Physical Exam Vital Signs: Last Vital Signs Pulse 92 03/08/24 15:05 BMI result Body Mass Index 41.8 Const General: no acute distress Nutritional Appearance: well nourished Orientation/consciousness: patient oriented x3 Resp Effort & Inspection: normal respiratory effort Skin Other: Warm, dry, no rash Neuro General: patient oriented x3 Extrem Other: Right great with obvious inflammatory changes in the lateral nail fold but no further changes in the medial nail fold or proximal nail fold. Ankle/foot/toe images: 1. Site of ingrown nail right great toe Assessment & Plan Assessment & Plan (1) Abscess of great toe of right foot: Code(s): L02.611 - Cutaneous abscess of right foot Category: Medical Plan 28-year-old male patient presenting with a recurrent ingrown toenail. I recommended further evaluation by a podiatric surgeon. He expressed understanding and agrees with the plan. Orders: Referrals Podiatry Referral L02.611 - Cutaneous abscess of right foot Coding Level of Care Code Est Pt Level 3 (05709) Diagnoses Abscess of great toe of right foot L02.611
[2024-03-08 15:05] VITALS: PULSE 92; BMI 41.8
== END 2024-03-08 15:25 | disposition home or self-care (01) ==
PROVIDERS: PCP Internal Medicine; Visit Provider Surgery
DX: L02.611 Cutaneous abscess of right foot (principal)
CPT/HCPCS: 99213

== ENCOUNTER → 2024-03-08 14:58 | Outpatient (BNVA) | payer OTHER, SELFPAY | PROVIDERS: PCP Internal Medicine; Visit Provider Surgery | DX: L02.611 Cutaneous abscess of right foot (principal) | CPT/HCPCS: 99212 ==

== ENCOUNTER 2024-03-13 10:48 | Outpatient (REF) | payer OTHER, SELFPAY ==
[2024-03-13 10:52] LABS: MANUAL DIFF FLAG NO
[2024-03-13 11:59] LABS: Alanine Aminotransferase 30 U/L (0-40); Alkaline Phosphatase 62 U/L (39-117); Anion Gap 10 (12-20); Appearance Urine Clear; Aspartate Amino Transferase 23 U/L (5-37); Basophils Absolute Auto 0.1 X10*3/uL (0.0-0.2); Basophils Percent Auto 0.7 % (0-2); Bilirubin Total 0.4 mg/dL (0.0-1.0); Blood Urea Nitrogen 13 mg/dL (9-16); Calcium 9.1 mg/dL (8.4-10.2); Carbon Dioxide 27 mmol/L (22-29); Chloride 107 mmol/L (96-108); Cholesterol 136 mg/dL (<200); Color Urine Yellow; Eosinophils Absolute Auto 0.3 X10*3/uL (0.0-0.4); Eosinophils Percent Auto 2.4 % (0-4); Estimated Glomerular Filt Rate > 60; Glucose Fasting 89 mg/dL (60-99); Glucose Urine UA Negative (Negative); HDL Cholesterol 33 mg/dL (>40); Hematocrit 42.7 % (42.0-52.0); Hemoglobin 13.8 g/dl (14.0-18.0); Imm Gran Abs Auto 0.07 X10*3/uL (0.00-0.03); Imm Gran Pct Auto 0.7 % (0.0-0.4); LDL Cholesterol Calculated 71 mg/dL (<100); Leukocyte Esterase Urine Negative (Negative); Lymphocytes Absolute Auto 3.1 X10*3/uL (1.2-4.9); Lymphocytes Percent Auto 29.2 % (20-40); Mean Corpuscular HGB Conc 32.3 g/dl (31.0-36.0); Mean Corpuscular Hemoglobin 28.8 pg (27.0-33.0); Mean Platelet Volume 10.2 fL (9.4-12.4); Monocytes Absolute Auto 0.9 X10*3/uL (0.1-1.2); Monocytes Percent Auto 8.1 % (2-11); Neutrophils Absolute Auto 6.3 x10*3/uL (2.0-8.3); Neutrophils Percent Auto 58.9 % (45-73); Nitrite Urine Negative (Negative); PH 5.5 (5.0-9.0); Platelet Count 396 X10*3/uL (160-400); Potassium 3.8 mmol/L (3.3-5.1); Red Cell Distribution Width 12.6 % (11.0-16.0); Sodium 140 mmol/L (135-145); Specific Gravity - Urine >= 1.030 (1.005-1.025); Total Protein 8.2 g/dL (6.5-8.0); Triglycerides 161 mg/dL (<150); UMIC TRIGGER UACC YES; Urine Blood Negative (Negative); Urine Ketones Negative (Negative); Urine Protein 30 (1+) mg/dL (Neg-Trace); White Blood Count 10.7 X10*3/uL (4.8-10.8)
[2024-03-13 12:04] LABS: Bacteria Urine None Seen (None Seen); Hyaline Casts Urine 0-2 /LPF (0-2); RBC Urine 0-2 /HPF (0-2); Squamous Epithelial Cell Urine 0-2 /HPF (0-2); WBC Urine 0-5 /HPF (0-5)
== END 2024-03-13 10:49 | disposition home or self-care (01) ==
LOC: HO.LNP 10:48
PROVIDERS: Visit Provider Internal Medicine
DX: Z00.00 Encounter for general adult medical examination without abnormal findings (principal); E78.6 Lipoprotein deficiency; D72.829 Elevated white blood cell count, unspecified
CPT/HCPCS: 80053; 80061; 81001; 84153; 85025

== ENCOUNTER 2025-03-14 11:33 | Outpatient (REF) | payer OTHER, SELFPAY ==
--- OUTSIDE RECORDS SUMMARY | 2024-03-13 03:30 | XMS_ITS ---
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 Role Phone Wayne Bain Primary Care Provider REASON FOR VISIT yearly fasting labs Encounters Encounter Location Date Provider Diagnosis Wayne Bain MD [address] [place] [phone] 03/13/2024 Wayne Bain Low HDL (under 40) E78.6 ; Leukocytosis, unspecified type D72.829 and Blood tests for routine general physical examination Z00.00 Assessments Encounter Date Diagnosis (ICD Code) Assessment Notes Treatment Notes Treatment Clinical Notes Section Notes 03/13/2024 Low HDL (under 40) (ICD-10 - E78.6) 03/13/2024 Leukocytosis, unspecified type (ICD-10 - D72.829) 03/13/2024 Blood tests for routine general physical examination (ICD-10 - Z00.00) Plan Of Treatment Next Appt Details Provider Name:Wayne Thomas ier, 03/21/2025 02:30:00 PM, [address], [address], [place], [place], [phone], Progress Notes * HELMS, MarkelDOB:[birth year] (28 yo M)Acc No.[id number]:03/13/2024 Progress Note Patient: Markel Burnham Provider: Vikas Bain MD :1995 A ge:28 Y S ex:Male Date:03/13/2024 Address:[address] [place], [place] [id number] Subjective: * Chief Complaints: * Y early fasting labs * Medical History: * Surgical History: * Hospitalization/Major Diagno stic Procedure: * Medications: Objective: Assessment: * Assessment: 1. L ow HDL (under 40) - E78.6 (Primary) 2 . L eukocytosis, unspecified type - D72.829?3. B lood tests for routine general physical examination - Z00.00 Plan: * Treatment: 2. L eukocytosis, unspecified type L AB: Complete Blood Count Auto Diff L AB: Comprehensive [place]. Panel Fast L AB: Lipid Panel L AB: PSA,Total (Free>4and<10) L AB: UA ClnCatch+Micro w/rflx Cult 3. B lood tests for routine general physical examination L AB: Complete Blood Count Auto Diff L AB: Comprehensive [place]. Panel Fast L AB: Lipid Panel L AB: PSA,Total (Free>4and<10) L AB: UA ClnCatch+Micro w/rflx Cult * Procedure Codes: 3 6415 VENIPUNCT, ROUTINE* * * Sign off status: Completed true * Provider: Vikas Bain MD Date: Generated for Minna cornejo/Sirena/Emitting on: 02:56 PM EDT
--- OUTSIDE RECORDS SUMMARY | 2024-03-19 09:00 | XMS_ITS ---
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 Role Phone Wayne Bain Primary Care Provider Allergies No Known Allergies REASON FOR VISIT annual visit Medications Medication SIG (Take, Route, Frequency, Duration) Notes Start Date End Date Status Betamethasone Dipropionate Aug 0.05 % 1 application Externally Once a day for 30 days 04/14/2021 Not-Taking Cephalexin 500 MG 1 capsule Orally rosa ry 8 hrs for 14 days 03/19/2024 Active Melatonin ER 10 MG 2 tabs hs N ot-Taking Omeprazole 20 MG TAKE 1 CAPSULE BY MOUTH DAILY 30 MINUTES BEFORE MORNING MEAL ORALLY ONCE A DAY 30 DAYS for 90 Not-Taking Hydrocortisone Acetate 1 % 1 application Externally twice a day for 10 days 01/11/2023 Active Triamcinolone Acetonide 0.1 % 1 application Externally Twice a day for 30 days 05/15/2021 Active Clobetasol Propionate 0.05 % 1 application Externally Twice a day for elbow and back for 30 days 06/16/2023 Active Nystatin-Triamcinolone 159267-3.1 UNIT/GM 1 application Externally Twice a day for 90 days 09/23/2020 Not-Taking Fluticasone Propionate 50 MCG/ACT 1 spray in each nostril Nasally Once a day for 30 day(s) 07/05/2023 Not-Taking Social History Tobacco Use: Social History Observation Description Date Details (start date - stop date) Current Smoker NA - NA Tobacco Use/Smoking Question Answer Notes Patient is a current smoker How often do you smoke cigarettes? every day How many cigarettes a day do you smoke? 6-10 How soon after you wake up d o you smoke your first cigarette? within 5 minutes Are you interested in quitting? Not ready to adarsh t Additional Findings: Tobacco User Driss spencer cigarette smoker, not currently using another form of tobacco Additional Findings: Tobacco Non-User Cu rrent non-smoker, currently using no form of tobacco Alcohol Screen Question Answer Notes Did you have a drink contain ing alcohol in the past year? Yes How often did you have a dri nk containing alcohol in the past year? 4 or more times a week (4 points) How many drinks did you have on a typical day when you were drinking in the past year? 1 or 2 drinks (0 point) How often did you have 6 or more drinks on one occasion in the past year? Never (0 point) Points 4 Interpretation Positive Section Notes: vapes 3-4 times a day Vital Signs Blood pressure systolic 118 mm Hg 03/19/20 24 Blood pressure diastolic 74 mm Hg 024 Height 57.50 in 03/19/2024 Weight 267 lbs 03/19/2024 BMI 56.77 kg/m2 03/19/2024 Encounters Encounter Location Date Provider Diagnosis Wayne Bain MD [address] [place] [address] [place] [phone] 03/19/2024 Wayne Bain Plaque psoriasis L40.0 ; Annual physical exam Z00.00 ; Ingrown toenail L60.0 ; Subungual hematoma of fingernail, initial encounter S60.10XA and Depression screening Z13.31 Assessments Encounter Date Diagnosis (ICD Code) Assessment Notes Treatment Notes Treatment Clinical Notes Section Notes 03/19/2024 Plaque psoriasis (ICD-10 - L40.0) needs to make appt with derm/ info given to patient for [facility] , will cntinue current regiment 03/19/2024 Annual physical exam (ICD-10 - Z00.00) labs reviewed and discussed with patient 03/19/2024 Ingrown toenail (ICD-10 - L60.0) will place on ab while awaiting podiatry evaluation 03/19/2024 Subungual hematoma of fingernail, initial encounter (ICD-10 - S60.10XA) pinched it in a door at work. told him it should go away in about 6 months 03/19/2024 Depression screening (ICD-10 - Z13.31) negative screen Plan Of Treatment Medication Medication Name Sig Start Date Stop Date Notes Cephalexin 500 MG 1 capsule Orally rosa ry 8 hrs for 14 days 03/19/2024 Hydrocortisone Acetate 1 % 1 application Externally twice a day for 10 days 01/11/2023 Treatment Notes Assessment Notes Plaque psoriasis needs to make appt w ith derm/ info given to patient for [facility] , will cntinue current regiment Annual physical exam labs reviewed and d iscussed with patient Ingrown toenail will place on ab whi le awaiting podiatry evaluation Subungual hematoma of finger nail, initial encounter pinched it in a door at work. told him i t should go away in about 6 months Depression screening negative screen Next Appt Details Follow Up: 6 Months, Reason: Provider Name:Wayne Thomas ier, 03/21/2025 02:30:00 PM, [address] [place] [address], [address], [place], [place], [phone], Progress Notes * Markel HELMSDOB:[birth year] (28 yo M)Acc No.[id number]:03/19/2024 Progress Notes Patient: Markel Burnham Provider: Vikas Bain MD :1995 A ge:28 Y S ex:Male Date:03/19/2024 Address:[address] [place], [place] [phone] Subjective: * Chief Complaints: * A nnual visit * HPI: D epression Screening: PHQ-9 L ittle interest or pleasure in doing things N ot at all, F eeling down, depressed, or hopeless N ot at all, T rouble falling or staying asleep, or sleeping too much N ot at all, F eeling tired or having little energy N ot at all, P oor appetite or overeating N ot at all, F eeling bad about yourself or that you are a failure, or have let yourself or your family down N ot at all, T rouble concentrating on things, such as reading the newspaper or watching television N ot at all, M oving or speaking so slowly that other people could have noticed; or the opposite, being so fidgety or restless that you have been moving around a lot more than usual N ot at all, T houghts that you would be better off or of hurting yourself in some way N ot at all, T otal Score 0 . I nterpretation and Intervention D epression Screening Findings N egative, F ollow-Up for Depression : review of PHQ-9 found negative result, no follow-up needed. C ommunication Needs: Communication Needs D oes the patient have a hearing impairment N o, D oes the patient have a vision impairment? N o, D oes the patient have a cognition impairment? N o. S KONSTANTIN Questions: SDOH Questions I n the past year have you been worried about losing housing? N o, I n the past year have you or any family members you live with been unable to get any of the following when it was really needed? Check all that apply: N one. 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 * ROS: G eneral/Constitutional: Change in appetite d enies. C hills d enies. F ever d enies. O phthalmologic: Blurred vision d enies. D ischarge d enies. P ain d enies. E NT: Decreased hearing d enies. S ore throat d enies.?Swollen glands d enies. E ndocrine: Cold intolerance d enies. E xcessive thirst d enies. H eat intolerance d enies. W eight loss d enies. R espiratory: Cough d enies. S hortness of breath at rest d enies. S hortness of breath with exertion d enies. W heezing d enies. C ardiovascular: Chest pain at rest d enies. C hest pain with exertion?denies. I rregular heartbeat d enies. S hortness of breath d enies. ? G astrointestinal: Abdominal pain d enies. C hange in bowel habits d enies. D iarrhea d enies. N ausea d enies. R ectal bleeding d enies. V omiting d enies . G enitourinary: Blood in urine d enies. D ifficulty urinating d enies. F requent urination d enies. M usculoskeletal: Painful joints d enies. W eakness d enies. ? S kin: Dry skin d enies. I tching d enies. D enies?Mole(s), changes in moles, new moles or any lesions of concern. D enies P hotosensitivity. R yu d enies. N eurologic: Dizziness d enies. F ainting d enies. H eadache?denies. * Medical History: * Surgical History: * Hospitalization/Major Diagno stic Procedure: * Family History: F ather: alive 51 yrs. M other: alive 50 yrs, diagnosed with Hypertension, Diabetes, Asthma. 1 sister(s) - healthy. . Denies mental health/substance abuse family history, Denies mental health/substance abuse family history, Denies mental health/substance abuse family history. * Social History: T obacco Use: T obacco Use/Smoking P atient is a c urrent smoker, H ow often do you smoke cigarettes? e very day, H ow many cigarettes a day do you smoke? 6 -10, H ow soon after you wake up do you smoke your first cigarette? w ithin 5 minutes, A re you interested in quitting? N ot ready to quit, A dditional Findings: Tobacco User C urrent cigarette smoker, not currently using another form of tobacco, A dditional Findings: Tobacco Non-User C urrent non-smoker, currently using no form of tobacco. D rugs/Alcohol: A lcohol Screen D id you have a drink containing alcohol in the past year? Y es, H ow often did you have a drink containing alcohol in the past year? 4 or more times a week (4 points), H ow many drinks did you have on a typical day when you were drinking in the past year? 1 or 2 drinks (0 point), H ow often did you have 6 or more drinks on one occasion in the past year? N ever (0 point), P oints 4 , I nterpretation P ositive. M iscellaneous: n o Caffeine. Children: yes. no Exercise. Home smoke detector use: yes. Housing: living with relatives. Living with: family. Marital status: single. Occupation: works full-time. Pets: 1 dog. no Travel outside of the [place]. v apes 3-4 times a day. * Medications: T akingHydrocortisone Acetate 1 % Cream 1 application Externally twice a dayClobetasol Propionate 0.05 % Cream 1 application Externally Twice a day for elbow and backTriamcinolone Acetonide 0.1 % Lotion 1 application Externally Twice a dayTaking Hydrocortisone Acetate 1 % Cream 1 application Externally twice a dayTaking Clobetasol Propionate 0.05 % Cream 1 application Externally Twice a day for elbow and backTaking Triamcinolone Acetonide 0.1 % Lotion 1 application Externally Twice a dayNot-Taking/PRNFluticasone Propionate 50 MCG/ACT Suspension 1 spray in each nostril Nasally Once a dayNystatin-Triamcinolone 622613-3.1 UNIT/GM Cream 1 application Externally Twice a dayBetamethasone Dipropionate Aug 0.05 % Cream 1 application Externally Once a dayOmeprazole 20 MG Capsule Delayed Release TAKE 1 CAPSULE BY MOUTH DAILY 30 MINUTES BEFORE MORNING MEAL ORALLY ONCE A DAY 30 DAYS Melatonin ER 10 MG Tablet Extended Release 2 tabs hsMedication List reviewed and reconciled with the patientNot-Taking/PRN Fluticasone Propionate 50 MCG/ACT Suspension 1 spray in each nostril Nasally Once a dayNot-Taking/PRN Nystatin-Triamcinolone 748196-4.1 UNIT/GM Cream 1 application Externally Twice a dayNot-Taking/PRN Betamethasone Dipropionate Aug 0.05 % Cream 1 application Externally Once a dayNot-Taking/PRN Omeprazole 20 MG Capsule Delayed Release TAKE 1 CAPSULE BY MOUTH DAILY 30 MINUTES BEFORE MORNING MEAL ORALLY ONCE A DAY 30 DAYS Not-Taking/PRN Melatonin ER 10 MG Tablet Extended Release 2 tabs hsMedication List reviewed and reconciled with the patient * Allergies: N .K.D.A.yes[Allergies Verified] Objective: * Vitals: H t: 57.50, Wt: 267, BMI:56.77, BP:118/74, Wt-k.11. * P ast Orders: L ab:Lipid Panel (Order Date - 03/13/2024) (Collection Date - 03/13/2024) Value Reference Range Triglycerides 161 H <150 - mg/dL Cholesterol 136 <200 - mg/dL LDL Cholesterol Calculated 71 <100 - mg/dL HDL Cholesterol 33 L >40 - mg/dL L ab:Comprehensive [place]. Panel Fast (Order Date - 03/13/2024) (Collection Date - 03/13/2024) Value Reference Range Sodium 140 135-145 - mmol/L Bilirubin Total 0.4 0.0-1.0 - mg/dL Aspartate Amino Transferase 23 5-37 - U/L Alanine Aminotransferase 30 0-40 - U/L Total Protein 8.2 H 6.5-8.0 - g/dL Albumin Level 4.0 3.5-5.0 - g/dL Alkaline Phosphatase 62 39-117 - U/L Potassium 3.8 3.3-5.1 - mmol/L Chloride 107 96-108 - mmol/L Carbon Dioxide 27 22-29 - mmol/L Anion Gap 10 L 12-20 - Blood Urea Nitrogen 13 9-16 - mg/dL Creatinine 0.84 0.5-1.4 - mg/dL Estimated Glomerular Filt Rate > 60 - Glucose Fasting 89 60-99 - mg/dL Calcium 9.1 8.4-10.2 - mg/dL L ab:UA ClnCatch+Micro w/rflx Cult (Order Date - 03/13/2024) (Collection Date - 03/13/2024) Value Reference Range Color Urine Yellow - Appearance Urine Clear - PH 5.5 5.0-9.0 - Glucose Urine UA Negative Negative - mg/dL Urine Blood Negative Negative - Specific Foster - Urine >= 1.030 H 1.005-1.025 - Urine Protein 30 (1+) A Neg-Trace - mg/dL Urine Ketones Negative Negative - mg/dL Nitrite Urine Negative Negative - Leukocyte Esterase Urine Negative Negative - RBC Urine 0-2 0-2 - /HPF WBC Urine 0-5 0-5 - /HPF Squamous Epithelial Cell Urine 0-2 0-2 - /HP F Bacteria Urine None Seen None Seen - Hyaline Casts Urine 0-2 0-2 - /LPF * Examination: G eneral Examination: GENERAL APPEARANCE: w ell developed, well nourished, in no acute distress. HEAD: n ormocephalic, atraumatic. EYES: p upils equal, round, reactive to light and accommodation, sclera non-icteric. EARS: n ormal. ORAL CAVITY: m ucosa moist. THROAT: c lear. NECK/THYROID: n cha supple, full range of motion, no cervical lymphadenopathy, no bruits. SKIN: w arm and dry, no suspicious lesions psoriasis on scalp. HEART: r egular rate and rhythm, S1, S2 normal, no murmurs.? LUNGS: c lear to auscultation bilaterally. ABDOMEN: s oft, nontender, nondistended, bowel sounds present, normal, no organomegaly , no masses palpable. RECTAL EXAM: n ot examined. MALE GENITOURINARY: u ncircumcised, testes descended bilaterally, uncircumcised with psoriasis on the shaft. EXTREMITIES: n o clubbing, cyanosis, or edema, abnormal rt great toe with infected paronychia. NEUROLOGIC: n onfocal, motor strength normal upper and lower extremities, sensory exam intact. Assessment: * Assessment: 1. A nnual physical exam - Z00.00 (Primary) 2 . P laque psoriasis - L40.0 3 . I ngrown toenail - L60.0 4 . S ubungual hematoma of fingernail, initial encounter - S60.10XA?5. D epression screening - Z13.31 Plan: * Treatment: 2. P laque psoriasis Continue Hydrocortisone Acetate Cream, 1 %, 1 application, Externally, twice a day, 10 days, 30, Refills 3. Notes: needs to make appt with derm/ info given to patient for [facility] derm , will cntinue current regiment 3. I ngrown toenail Start Cephalexin Capsule, 500 MG, 1 capsule, Orally, every 8 hrs, 14 days, 42 Capsule. Notes: will place on ab while awaiting podiatry evaluation 4. S ubungual hematoma of fingernail, initial encounter Notes: pinched it in a door at work. told him it should go away in about 6 months 5. 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 Depression Screening PHQ-9 Little inte rest or pleasure in doing things: Not at all Feeling down, depressed, or hopeless: No t at all Trouble falling or staying asleep, or sl eeping too much: Not at all Feeling tired or having little energy: N ot at all Poor appetite or overeating: Not at all Feeling bad about yourself o r that you are a failure, or have let yourself or your family down: Not at all Trouble concentrating on thi ngs, such as reading the newspaper or watching television: Not at all Moving or speaking so slowly that other people could have noticed; or the opposite, being so fidgety or restless that you have been moving around a lot more than usual: Not at all Thoughts that you would be b tiffanie off or of hurting yourself in some way: Not at all Total Score: 0 Interpretation and Intervention Depression Mandy irwin Findings: Negative Follow-Up for Depression: : review of PH Q-9 found negative result, no follow-up needed SDOH Questions SDOH Questions In the past year have you been worried about losing housing?: No In the past year have you or any family members you live with been unable to get any of the following when it was really needed? Check all that apply:: None Communication Needs Communication Needs Does the patient have a hearing impairment: No Does the patient have a vision impairmen t?: No Does the patient have a cognition impair ment?: No Examination Category Sub-Category Detail Notes Category Not es General Examination GENERAL APPEARANCE: well dev eloped, well nourished, in no acute distress HEAD: normocephalic, atrau matic EYES: pupils equal, round, reactive to light and accommodation, sclera non-icteric EARS: normal THROAT: clear NECK/THYROID: neck supple, full ra nge of motion, no cervical lymphadenopathy, no bruits HEART: regular rate and rhy thm, S1, S2 normal, no murmurs LUNGS: clear to auscultatio n bilaterally ABDOMEN: soft, nontender, non distended, bowel sounds present, normal, no organomegaly , no masses palpable NEUROLOGIC: nonfocal, motor stre ngth normal upper and lower extremities, sensory exam intact SKIN: warm and dry, no chaparrita picious lesions psoriasis on scalp EXTREMITIES: no clubbing, cyanosi s, or edema, abnormal rt great toe with infected paronychia MALE GENITOURINARY: uncircumcised, teste s descended bilaterally, uncircumcised with psoriasis on the shaft RECTAL EXAM: not examined ORAL CAVITY: mucosa moist
--- OUTSIDE RECORDS SUMMARY | 2024-08-14 09:00 | XMS_ITS ---
Author Organization Wayne Bain MD Address [address] [place], [place] [phone] Care Team Providers Care Byproduct Engineer Name Role Phone Wayne Bain Primary Care Provider Allergies No Known Allergies Reason For Referral Reason paronychia of big to e Diagnosis 1 Paronychia of great toe of right foot (L03.031) Referral Organization Wayne Bain MD Referring Provider First Name Wayne Referring Provider Last Name Odell Referring Provider Speciality Internal M edicine Referred Provider [facility], [facility] Referred Provider Specialty Orthopedic S urgery General Notes Giana Blanchard 0 08/14/2024 01:35:34 PM >needs appt with Lo Gan Annette 09/07/2024 01:38:54 PM >patient called with info and mailed Referral Priority Routine Referral Appointment Date 09/27/2024 REASON FOR VISIT right big toe infection Medications Medication SIG (Take, Route, Frequency, Duration) Notes Start Date End Date Status Melatonin ER 10 MG 2 tabs hs N ot-Taking Nystatin-Triamcinolone 124041-3.1 UNIT/GM 1 application Externally Twice a day for 90 days 09/23/2020 Not-Taking Betamethasone Dipropionate Aug 0.05 % 1 application Externally Once a day for 30 days 04/14/2021 Not-Taking Cephalexin 500 MG 1 capsule Orally rosa ry 6 hrs for 10 day(s) 08/14/2024 Active Omeprazole 20 MG TAKE 1 CAPSULE BY MOUTH DAILY 30 MINUTES BEFORE MORNING MEAL ORALLY ONCE A DAY 30 DAYS for 90 Not-Taking Triamcinolone Acetonide 0.1 % 1 application Externally Twice a day for 30 days 05/15/2021 Not-Taking Cephalexin 500 MG 1 capsule Orally rosa ry 8 hrs for 14 days 03/19/2024 Not-Taking Hydrocortisone Acetate 1 % 1 application Externally twice a day for 10 days 01/11/2023 Not-Taking Clobetasol Propionate 0.05 % 1 application Externally Twice a day for elbow and back for 30 days 06/16/2023 Not-Taking Fluticasone Propionate 50 MCG/ACT 1 spray in each nostril Nasally Once a day for 30 day(s) 07/05/2023 Not-Taking Vital Signs Blood pressure systolic 122 mm Hg 08/15/19 25 Blood pressure diastolic 68 mm Hg 025 Height 57.50 in 08/14/2024 Weight 270 lbs 08/14/2024 BMI 57.41 kg/m2 08/14/2024 weight is up 3 pounds since 03-19-24 Encounters Encounter Location Date Provider Diagnosis Wayne Bain MD [address] [place] [address] [address] [place] [phone] 08/14/2024 Wayne Bain Paronychia L03.019 Assessments Encounter Date Diagnosis (ICD Code) Assessment Notes Treatment Notes Treatment Clinical Notes Section Notes 08/14/2024 Paronychia (ICD-10 - L03.019) referral to dr ana leon at [facility] Plan Of Treatment Medication Medication Name Sig Start Date Stop Date Notes Cephalexin 500 MG 1 capsule Orally rosa ry 6 hrs for 10 day(s) 08/14/2024 Treatment Notes Assessment Notes Paronychia referral to dr sandy leon at [facility] Referrals Referral Date Details 08/14/2024 08/14/2024, paronych ia of big toe, [facility] Next Appt Details Provider Name:Wayne livingston, 03/21/2025 02:30:00 PM, [address] [place] [address] Drive, [address], [place], [place], [phone], Progress Notes * Markel HELMSDOB:[birth year] (28 yo M)Acc No.[id number]:08/14/2024 Patient: Markel COLLIER Provider: Vikas Bain MD :1995 A ge:28 Y S ex:Male Date:08/14/2024 Address:[address] [place], [place] [id number] Subjective: * Chief Complaints: * R ight big toe infection * HPI: S ymptom(s): patient is a 28 yo male here with complaint of right big toe infection/ has recurrence of nail infection and some pain on the dorsum of his foot. * ROS: G eneral/Constitutional: Denies C hills. D enies F atigue. D enies F ever. D enies H eadache. E NT: Denies S ore throat. R espiratory: Denies C ough. D enies S hortness of breath at rest. D enies S hortness of breath with exertion. G astrointestinal: Denies D iarrhea. D enies N ausea. * Medical History: * Surgical History: * Hospitalization/Major Diagno stic Procedure: * Medications: N ot-Taking/PRNClobetasol Propionate 0.05 % Cream 1 application Externally Twice a day for elbow and back Triamcinolone Acetonide 0.1 % Lotion 1 application Externally Twice a day Cephalexin 500 MG Capsule 1 capsule Orally every 8 hrs Hydrocortisone Acetate 1 % Cream 1 application Externally twice a day Fluticasone Propionate 50 MCG/ACT Suspension 1 spray in each nostril Nasally Once a day Nystatin- Triamcinolone 083121-2.1 UNIT/GM Cream 1 application Externally Twice a day Betamethasone Dipropionate Aug 0.05 % Cream 1 application Externally Once a day Omeprazole 20 MG Capsule Delayed Release TAKE 1 CAPSULE BY MOUTH DAILY 30 MINUTES BEFORE MORNING MEAL ORALLY ONCE A DAY 30 DAYS Melatonin ER 10 MG Tablet Extended Release 2 tabs hs Medication List reviewed and reconciled with the patientNot-Taking/PRN Clobetasol Propionate 0.05 % Cream 1 application Externally Twice a day for elbow and back Not-Taking/PRN Triamcinolone Acetonide 0.1 % Lotion 1 application Externally Twice a day Not-Taking/PRN Cephalexin 500 MG Capsule 1 capsule Orally every 8 hrs Not-Taking/PRN Hydrocortisone Acetate 1 % Cream 1 application Externally twice a day Not-Taking/PRN Fluticasone Propionate 50 MCG/ACT Suspension 1 spray in each nostril Nasally Once a day Not-Taking/PRN Nystatin-Triamcinolone 068368-9.1 UNIT/GM Cream 1 application Externally Twice a day Not-Taking/PRN Betamethasone Dipropionate Aug 0.05 % Cream 1 application Externally Once a day Not-Taking/PRN Omeprazole 20 MG Capsule Delayed Release TAKE 1 CAPSULE BY MOUTH DAILY 30 MINUTES BEFORE MORNING MEAL ORALLY ONCE A DAY 30 DAYS Not-Taking/PRN Melatonin ER 10 MG Tablet Extended Release 2 tabs hs Medication List reviewed and reconciled with the patient * Allergies: N .K.D.A.yes[Allergies Verified] Objective: * Vitals: H t: 57.50, Wt: 270, BMI:57.41, BP:122/68, Wt-k.47. weight is up 3 pounds since 03-19-24. * Examination: G eneral Examination: GENERAL APPEARANCE: a lert, well hydrated, in no distress.? SKIN: a bnormal with rt great toe with a paronychia. dorsum of foot is normal. Assessment: * Assessment: 1. P aronychia - L03.019 (Primary) Plan: * Treatment: 2. O thers Referral To:[facility] Orth[facility] and Sports medicine Orthopedic Surgery Reason:paronychia of big toe * Procedure Codes: * * Sign off status: Completed true * Provider: Vikas Bain MD Date: 0 08/14/2024 Generated for Minna cornejo/Sirena/Emitting on: 1 02:56 PM EDT History and Physical Notes * HPI (History of Present Illness) Category Sub-Category Detail Notes Category Not es Symptom(s) patient is a 28 yo male here with complaint of right big toe infection/ has recurrence of nail infection and some pain on the dorsum of his foot Examination Category Sub-Category Detail Notes Category Not es General Examination GENERAL APPEARANCE: alert, w ell hydrated, in no distress SKIN: abnormal with rt gre at toe with a paronychia. dorsum of foot is normal Consultation Request Notes Referral Date Referring Provider Referred Provider Not es 08/14/2024 Wayne Bain [facility], Yair Mercado [facility] paronychia of big toe
--- OUTSIDE RECORDS SUMMARY | 2024-09-18 10:00 | XMS_ITS ---
Author Organization Wayne Bain MD Address [address] [place] [phone] Care Team Providers Care Quahogger Name Role Phone Wayne Bain Primary Care Provider Allergies No Known Allergies REASON FOR VISIT 6 month Medications Medication SIG (Take, Route, Frequency, Duration) Notes Start Date End Date Status Clobetasol Propionate 0.05 % 1 application Externally Twice a day for elbow and back for 30 days 06/16/2023 Not-Taking Hydrocortisone Acetate 1 % 1 application Externally twice a day for 10 days 01/11/2023 Not-Taking Fluticasone Propionate 50 MCG/ACT 1 spray in each nostril Nasally Once a day for 30 day(s) 07/05/2023 Not-Taking Vital Signs Blood pressure systolic 112 mm Hg 09/19/19 25 Blood pressure diastolic 60 mm Hg 025 Height 57.50 in 09/18/2024 Weight 271 lbs 09/18/2024 BMI 57.62 kg/m2 09/18/2024 Encounters Encounter Location Date Provider Diagnosis Wayne Bain MD [address] [place] [phone] 09/18/2024 Wayne Bain Psoriasis L40.9 Assessments Encounter Date Diagnosis (ICD Code) Assessment Notes Treatment Notes Treatment Clinical Notes Section Notes 09/18/2024 Psoriasis (ICD-10 - L40.9) gave radha murillo to see if he can get in/ info given to patient Plan Of Treatment Treatment Notes Assessment Notes Psoriasis gave radha spence to see if he can get in/ info given to patient Next Appt Details Follow Up: 6 Months, Reason: Provider Name:Wayne Thomas ier, 03/21/2025 02:30:00 PM, [address], [address], [place], [phone], Progress Notes * Markel HELMSDOB:[birth year] (28 yo M)Acc No.[id number]:09/18/2024 Progress Notes Patient: Markel COLLIER Provider: Vikas Bain MD :1995 A ge:28 Y S ex:Male Date:09/18/2024 Address:[facility]. [facility] Christine [id number] Subjective: * Chief Complaints: * 6 month * HPI: S ymptom(s): patient is a 28 y male here for 6 month follow up visit/ september first to see dr perez at [facility]. * ROS: G eneral/Constitutional: Denies C hills. D enies F atigue. D enies F ever. D enies H eadache. E NT: Denies S ore throat. R espiratory: Denies C ough. D enies S hortness of breath at rest. G astrointestinal: Denies D iarrhea. D enies N ausea. * Medical History: * Surgical History: * Hospitalization/Major Diagno stic Procedure: * Medications: N ot-Taking/PRNClobetasol Propionate 0.05 % Cream 1 application Externally Twice a day for elbow and back Hydrocortisone Acetate 1 % Cream 1 application Externally twice a day Fluticasone Propionate 50 MCG/ACT Suspension 1 spray in each nostril Nasally Once a day Not-Taking/PRN Clobetasol Propionate 0.05 % Cream 1 application Externally Twice a day for elbow and back Not-Taking/PRN Hydrocortisone Acetate 1 % Cream 1 application Externally twice a day Not-Taking/PRN Fluticasone Propionate 50 MCG/ACT Suspension 1 spray in each nostril Nasally Once a day DiscontinuedCephalexin 500 MG Capsule 1 capsule Orally every 6 hrs Discontinued Cephalexin 500 MG Capsule 1 capsule Orally every 6 hrs * Allergies: N .K.D.A.yes[Allergies Verified] Objective: * Vitals: H t: 57.50, Wt: 271, BMI:57.62, BP:112/60, Wt-k.92. * Examination: G eneral Examination: GENERAL APPEARANCE: a lert, well hydrated, in no distress.? HEAD: n ormocephalic. HEART: n o murmurs, rubs, gallops, regular rate and rhythm.? LUNGS: n o wheezes, rales, rhonchi, good air movement, clear to auscultation bilaterally. Assessment: * Assessment: 1. P soriasis - L40.9 (Primary) Plan: * Treatment: * Procedure Codes: * Follow Up: 6 Months * * Sign off status: Completed true * Provider: Vikas Bain MD Date: 0 09/18/2024 Generated for Minna cornejo/Sirena/Esharansmitting on: 1 02:56 PM EDT History and Physical Notes * HPI (History of Present Illness) Category Sub-Category Detail Notes Category Not es Symptom(s) patient is a 28 y male here for 6 month follow up visit/ may first to see dr perez at [facility]. Examination Category Sub-Category Detail Notes Category Not es General Examination GENERAL APPEARANCE: alert, w ell hydrated, in no distress HEAD: normocephalic HEART: no murmurs, rubs, ga llops, regular rate and rhythm LUNGS: no wheezes, rales, r honchi, good air movement, clear to auscultation bilaterally
--- OUTSIDE RECORDS SUMMARY | 2025-03-14 03:30 | XMS_ITS ---
Author Organization Wayne Bain MD Address [address] [place], [place] [phone] Care Team Providers Care Director Of Entertainment Name Role Phone Wayne Bain Primary Care Provider Encounters Encounter Location Date Provider Diagnosis Wayne Bain MD [address] [place] [phone] 03/14/2025 Wayne Bain Blood tests for routine general physical examination Z00.00 ; Low HDL (under 40) E78.6 and Leukocytosis, unspecified type D72.829 Assessments Encounter Date Diagnosis (ICD Code) Assessment Notes Treatment Notes Treatment Clinical Notes Section Notes 03/14/2025 Blood tests for routine general physical examination (ICD-10 - Z00.00) 03/14/2025 Low HDL (under 40) (ICD-10 - E78.6) 03/14/2025 Leukocytosis, unspecified type (ICD-10 - D72.829) Plan Of Treatment Pending Test Test Name Order Date Complete Blood Count Auto Diff 5 Comprehensive Gazelle. Panel Fast 5 Lipid Panel 03/14/2025 UA ClnCatch+Micro w/rflx Cult 03/14/2025 Next Appt Details Provider Name:Wayne livingston, 03/21/2025 02:30:00 PM, [address], [address], [place], [place], [phone], Progress Notes * Markel HELMSDOB:[birth year] (29 yo M)Acc No.[id number]:03/14/2025 Progress Note Patient: Markel COLLIER Provider: Vikas Bain MD :1995 A ge:29 Y S ex:Male Date:03/14/2025 Address:[address] [place], [place] [phone] Subjective: * Chief Complaints: * * Medical History: Objective: * Vitals: Assessment: * Assessment: 1. B lood tests for routine general physical examination - Z00.00 (Primary) 2 .?Low HDL (under 40) - E78.6 3 . L eukocytosis, unspecified type - D72.829? Plan: * Treatment: 2. L ow HDL (under 40) L AB: Complete Blood Count Auto Diff L AB: Comprehensive Gazelle. Panel Fast L AB: Lipid Panel L AB: UA ClnCatch+Micro w/rflx Cult 3. L eukocytosis, unspecified type L AB: Complete Blood Count Auto Diff L AB: Comprehensive Gazelle. Panel Fast L AB: Lipid Panel L AB: UA ClnCatch+Micro w/rflx Cult * Procedure Codes: 3 6415 VENIPUNCT, ROUTINE* * * The named appointment provid er may or may not be the originator of this progress note, and it is not deemed complete until electronically signed by the appointment provider. Sign off status: Pending * Provider: Vikas Bain MD Date: Generated for Minna cornejo/Sirena/Emitting on: 02:56 PM EDT
[2025-03-14 11:37] LABS: MANUAL DIFF FLAG NO
[2025-03-14 11:46] LABS: Appearance Urine Clear; Glucose Urine UA Negative (Negative); PH 5.5 (5.0-9.0); Specific Gravity - Urine 1.020 (1.005-1.025)
[2025-03-14 11:47] LABS: Hematocrit 41.2 % (42.0-52.0); Hemoglobin 13.5 g/dl (14.0-18.0); Imm Gran Abs Auto 0.06 X10*3/uL (0.00-0.03); Imm Gran Pct Auto 0.6 % (0.0-0.4); Lymphocytes Absolute Auto 2.6 X10*3/uL (1.2-4.9); Mean Corpuscular HGB Conc 32.8 g/dl (31.0-36.0); Mean Corpuscular Hemoglobin 29.0 pg (27.0-33.0); Mean Corpuscular Volume 88.6 fL (80.0-98.0); NRBC Abs Auto 0.000 X10*3/uL (0.0-0.012); NRBC Pct Auto 0.0 /100WBC (0.0-0.2); Platelet Count 402 X10*3/uL (160-400); Red Blood Count 4.65 X10*6/uL (4.60-5.80); White Blood Count 10.8 X10*3/uL (4.8-10.8)
[2025-03-14 11:58] LABS: Alanine Aminotransferase 41 U/L (0-40); Albumin Level 4.2 g/dL (3.5-5.0); Alkaline Phosphatase 68 U/L (39-117); Anion Gap 10 (12-20); Aspartate Amino Transferase 36 U/L (5-37); Blood Urea Nitrogen 12 mg/dL (9-16); Calcium 9.3 mg/dL (8.4-10.2); Carbon Dioxide 26 mmol/L (22-29); Chloride 108 mmol/L (96-108); Cholesterol 133 mg/dL (<200); Estimated Glomerular Filt Rate > 60; HDL Cholesterol 32 mg/dL (>40); Potassium 4.2 mmol/L (3.3-5.1); Sodium 140 mmol/L (135-145); Total Protein 8.2 g/dL (6.5-8.0); Triglycerides 97 mg/dL (<150)
--- OUTSIDE RECORDS SUMMARY | 2025-03-14 14:56 | XMS_ITS | Encounter Summary ---
Author Organization [facility] Address [address] [place] [address] Phone Care Team Providers Care General Scrap Worker Name Role Phone Kendall Sow MD Primary Care Provider [phone] Encounter Details Date Type Department Care Team (Late st Contact Info) Description 10/19/2016 Documentation [facility] [place] [address] [place] [address] Family Medicine, Physician [address] [place], [place] [phone] Social History Tobacco Use Types Packs/Day Years Used Date Smoking Tobacco: Never Comments:Never smoker Sex and Gender Information Value Date Recorded Sex Assigned at Not on file Legal Sex Male 4:51 PM EDT Gender Identity Not on file Sexual Orientation Not on file documented as of this encounter Plan of Treatment Not on file documented as of this encounter Visit Diagnoses Not on filedocumented in this encounter Care Teams General Scrap Worker Relationship Specialty Start Date End Date Kendall Sow MD [address] [place] [address] [place] [address] PCP - General 01/07/17 09/14/22 documented as of this encounter
--- OUTSIDE RECORDS SUMMARY | 2025-03-14 14:56 | XMS_ITS | Encounter Summary ---
Author Organization [facility] Address [address] [place] [address] Phone Care Team Providers Care Bore Miner Operator Name Role Phone Kendall Sow MD Primary Care Provider [phone] Encounter Details Date Type Department Care Team (Late st Contact Info) Description 01/21/2010 Documentation [facility] Family Medicine [address] [place] [address] Family Medicine, Physician [address] [place], [place] [phone] Social History Tobacco Use Types Packs/Day Years Used Date Smoking Tobacco: Never Assessed Sex and Gender Information Value Date Recorded Sex Assigned at Not on file Legal Sex Male 4:51 PM EDT Gender Identity Not on file Sexual Orientation Not on file documented as of this encounter Plan of Treatment Not on file documented as of this encounter Visit Diagnoses Not on filedocumented in this encounter Care Teams Bore Miner Operator Relationship Specialty Start Date End Date Kendall Sow MD [address] [place] [address] PCP - General 01/07/17 09/14/22 documented as of this encounter
--- OUTSIDE RECORDS SUMMARY | 2025-03-14 14:56 | XMS_ITS | Encounter Summary ---
Author Organization [facility] Address [address] [place] [address] Phone Care Team Providers Care Adjunct Sociology Professor Name Role Phone Kendall Sow MD Primary Care Provider [phone] Encounter Details Date Type Department Care Team (Late st Contact Info) Description 01/21/2015 Documentation [facility] Family [facility] [address] [place] [address] Family Medicine, Physician [address] [place], [place] [phone] Social History Tobacco Use Types Packs/Day Years [...] on filedocumented in this encounter Care Teams Adjunct Sociology Professor Relationship Specialty Start Date End Date Kendall Sow MD [address] [place] [address] PCP - General 01/07/17 09/14/22 documented as of this encounter
--- OUTSIDE RECORDS SUMMARY | 2025-03-14 14:56 | XMS_ITS | Encounter Summary ---
Author Organization [facility] Address [address] [place] [address] Phone Care Team Providers Care Browning Processor Name Role Phone Kendall Sow MD Primary Care Provider [phone] Encounter Details Date Type Department Care Team (Late st Contact Info) Description 12/21/2010 Documentation [facility] Family [facility] [address] [place] [address] Family Medicine, Physician [address] [place], [place] [phone] Social History Tobacco Use Types Packs/Day Years [...] on filedocumented in this encounter Care Teams Browning Processor Relationship Specialty Start Date End Date Kendall Sow MD [address] [place] [address] PCP - General 01/07/17 09/14/22 documented as of this encounter
--- OUTSIDE RECORDS SUMMARY | 2025-03-14 14:56 | XMS_ITS | Encounter Summary ---
Author Organization [facility] Address [address] [place] [address] Phone Care Team Providers Care Rotor Casting Machine Setup Operator Name Role Phone Kendall Sow MD Primary Care Provider [phone] Encounter Details Date Type Department Care Team (Late st Contact Info) Description 01/04/2012 Documentation [facility] Family Medicine [address] [place] [address] Family Medicine, Physician [address] [place], [place] [phone] Social History Tobacco Use Types Packs/Day Years [...] on filedocumented in this encounter Care Teams Rotor Casting Machine Setup Operator Relationship Specialty Start Date End Date Kendall Sow MD [address] [place] [address] PCP - General 01/07/17 09/14/22 documented as of this encounter
--- OUTSIDE RECORDS SUMMARY | 2025-03-14 14:56 | XMS_ITS | Patient Health Record ---
Author Organization [facility] Address [address] [place] [phone] Care Team Providers Care Perianesthesia Manager Name Role Phone Wayne Bain MD Primary Care Provider Ethan Burnette Jr [phone] Allergies No Known Allergies Reason For Referral No Information Medications Medication SIG (Take, Route, Fr equency, Duration) Notes Start Date End Date Status Omeprazole 20 MG 1 capsule 30 minutes before morning meal Orally Once a day; Duration: 30 day(s) Active Immunizations Vaccine Route Administration Date Status Comme nts Influenza Unknown 04/01/2021 Administered Social History Tobacco Use: Social History Observation Description Date Details (start date - stop date) Never Smoker NA - NA Tobacco Use/Smoking Question Answer Notes Patient is a nonsmoker Alcohol Screen Question Answer Notes Did you have a drink contain ing alcohol in the past year? Yes How often did you have a dri nk containing alcohol in the past year? 2 to 4 times a month (2 points) How many drinks did you have on a typical day when you were drinking in the past year? 1 or 2 drinks (0 point) How often did you have 6 or more drinks on one occasion in the past year? Less than monthly (1 point) Points 3 Interpretation Negative Section Notes: Patient vapes Patient vapes Problems Problem Type SNOMED Code ICD Code Onset Dates Problem Status W/U Status Risk Notes Problem Epigastric pain (45655700) Epigastric pain (R10.13) Active confirmed Problem Gastroesophageal reflux disease without esophagitis (207955316) Gastroesophageal reflux disease without esophagitis (K21.9) Active confirmed Problem Abnormal UGI series (R93.3) Active confirmed Plan Of Treatment Future Test Test Name Order Date UPPER GI ENDOSCOPY 04/22/2021 Insurance Providers Payer Name Payer Address Payer Phone Subscriber Number Group Number Insured Name Patient Relationship to Insured Coverage Start Date Coverage End Date [facility] [address] [address] [place] [phone] [id number] SKIP HELMS Self - patient is the insured Medical (General) History Medical History History ICD Code acid reflux Surgical History Surgery Date(Month/Year)
--- OUTSIDE RECORDS SUMMARY | 2025-03-14 14:56 | XMS_ITS | Encounter Summary ---
Author Organization [facility] Address [address] [place] [address] Phone Care Team Providers Care Box Covering Machine Operator Name Role Phone Kendall Sow MD Primary Care Provider [phone] Encounter Details Date Type Department Care Team (Late st Contact Info) Description 01/13/2017 Conversion Encounter [facility] [place] [address] [place] [address] Social History Tobacco Use Types Packs/Day Years [...] on filedocumented in this encounter Care Teams Box Covering Machine Operator Relationship Specialty Start Date End Date Kendall Sow MD [address] [place] [address] PCP - General 01/07/17 09/14/22 documented as of this encounter
--- OUTSIDE RECORDS SUMMARY | 2025-03-14 14:56 | XMS_ITS | Encounter Summary ---
Author Organization [facility] Address [address] [place] [address] Phone Care Team Providers Care Auto Body Repair Technician Name Role Phone Kendall Sow MD Primary Care Provider [phone] Encounter Details Date Type Department Care Team (Late st Contact Info) Description 10/19/2016 Documentation [facility] [place] [address] [place] [address] Family Medicine, Physician [address] [place], [place] [phone] Social History Tobacco Use Types Packs/Day Years [...] on filedocumented in this encounter Care Teams Auto Body Repair Technician Relationship Specialty Start Date End Date Kendall Sow MD [address] [place] [address] [place] [address] PCP - General 01/07/17 09/14/22 documented as of this encounter
--- OUTSIDE RECORDS SUMMARY | 2025-03-14 14:56 | XMS_ITS | Encounter Summary ---
Author Organization [facility] Address [address] [place] [address] Phone Care Team Providers Care Granite Sandblaster Apprentice Name Role Phone Kendall Sow MD Primary Care Provider [phone] Encounter Details Date Type Department Care Team (Late st Contact Info) Description 01/10/2014 Documentation [facility] Family Medicine [address] [place] [address] Family Medicine, Physician [address] [place], [place] [phone] Social History Tobacco Use Types Packs/Day Years [...] on filedocumented in this encounter Care Teams Granite Sandblaster Apprentice Relationship Specialty Start Date End Date Kendall Sow MD [address] [place] [address] PCP - General 01/07/17 09/14/22 documented as of this encounter
--- OUTSIDE RECORDS SUMMARY | 2025-03-14 14:56 | XMS_ITS | Clinical Summary ---
Author Organization [facility] Address [address] [place] [address] Phone Care Team Providers Care Marine Steam Fitter Helper Name Role Phone Unavailable Primary Care Provider Unavailabl e Immunizations Immunization Administration Dates Next Due DTP 11/18/1999, 8,05/08/1996,02/27,1995 HPV, Quadrivalent 05/09/2012,01/03/2012,12/19/19 11 Hep A, ped/adol 01/09/2014,12/18/2010 Hep B, ped/adol 05/08/1996,02/28/1996,1995 Hib (PRP-T) 11/18/1999, 6,02/28/1996,12/14 IPV 05/08/1996,02/28/1996,1995 Influenza, injectable, trivalent 05/28/2008 MMR 11/18/1999,11/26/1996 Meningococcal Conj (Menactra) MCV4P 01/09/2014,0 12/05/2007 OPV 11/18/1999 Td (adult) (MBL), 2 Lf tetan us toxoid, PF, adsorbed 10/18/2016 Tdap 02/14/2006 Varicella 12/05/2007,01/04/2002 Family History Relation Name Status Comments Father Alive Father: Alive a nd well Maternal Grandmother Materna l grandmother: Renal disease, Hyperlipidemia, Mother Alive Mother: Asthma / diabetes / high BP Other Family history of Dental caries, Family history of *Dental caries, Family history of Obesity, Family history of Sudden /AK under age 55 Paternal Grandfather Paterna l grandfather: Diabetes mellitus Sister Alive Sister: Asthma Social History Tobacco Use Types Packs/Day Years Used Date Smoking Tobacco: Never Comments:Never smoker Sex and Gender Information Value Date Recorded Sex Assigned at Not on file Legal Sex Male 4:51 PM EDT Gender Identity Not on file Sexual Orientation Not on file Last Filed Vital Signs Vital Sign Reading Time Taken Comments Blood Pressure 115/78 10/18/2016 12:00 AM EDT Pulse 81 10/18/2016 12:00 AM EDT Temperature 36.6 C (97.8 F) 07/31/2015 12:00 AM EST Respiratory Rate - - Oxygen Saturation 97% 07/31/2015 12:00 AM EST Inhaled Oxygen Concentration - - Weight 107 kg (235 lb 6.4 oz) 10/18/2016 12:00 A M EDT Height 170.8 cm (5' 7.25 ) 10/18/2016 12:00 AM E DT Body Mass Index 36.59 10/18/2016 12:00 AM EDT Plan of Treatment Health Maintenance Due Date Last Done Comments Influenza Vaccines (#1) 2024 05/28/2008 COVID-19 Vaccine ( season) 2025 DTaP,Tdap,and Td Vaccines (8 - Td or Tdap) 10/18/2026 10/18/2016, 02/14/2006, 11/18/1999, Additional history exists Hepatitis B Vaccines Completed 05/08/1996, 02/28/1996, 1995 HIB Vaccines Completed 11/18/1999, 04/29, 02/28/1996, Additional history exists IPV Vaccines Completed 11/18/1999, 04/29, 02/28/1996, Additional history exists MMR Vaccines Completed 11/18/1999, 11/26/1996 Varicella Vaccines Completed 12/05/2007, 01/04/2002 HPV Vaccines Completed 05/09/2012, 080 10/2011, 12/18/2010 Hepatitis A Vaccines Completed 01/09/2014, 12/19/19 11 Meningococcal Vaccine Completed 01/09/2014, 008 Men B Vaccine Aged Out No longer elig ible based on patient's age to complete this topic Pneumococcal Vaccine Aged Out No long er eligible based on patient's age to complete this topic
--- OUTSIDE RECORDS SUMMARY | 2025-03-14 14:57 | XMS_ITS | Encounter Summary ---
Author Organization [facility] Address [address] [place] [address] Phone Care Team Providers Care Xerox Machine Operator Name Role Phone Kendall Sow MD Primary Care Provider [phone] Encounter Details Date Type Department Care Team (Late st Contact Info) Description 01/10/2014 Documentation EM Family Medicine [address] [place] [address] Family Medicine, Physician [address] [place], [place] [phone] Social History Tobacco Use Types Packs/Day Years [...] on filedocumented in this encounter Care Teams Xerox Machine Operator Relationship Specialty Start Date End Date Kendall Sow MD [address] [place] [id number] PCP - General 01/07/17 09/14/22 documented as of this encounter
--- OUTSIDE RECORDS SUMMARY | 2025-03-14 14:57 | XMS_ITS | Encounter Summary ---
Author Organization [facility] Address [address] [place] [address] Phone Care Team Providers Care Letter Of Credit Clerk Name Role Phone Kendall Sow MD Primary Care Provider [phone] Encounter Details Date Type Department Care Team (Late st Contact Info) Description 01/04/2012 Documentation EM Family Medicine [address] [place] [address] Family Medicine, Physician [address] [place], [place] [phone] Social History Tobacco Use Types Packs/Day Years [...] on filedocumented in this encounter Care Teams Letter Of Credit Clerk Relationship Specialty Start Date End Date Kendall Sow MD [address] [place] [address] PCP - General 01/07/17 09/14/22 documented as of this encounter
--- OUTSIDE RECORDS SUMMARY | 2025-03-14 14:57 | XMS_ITS | Encounter Summary ---
Author Organization [facility] Address [address] [place] [address] Phone Care Team Providers Care Agricultural Extension Specialist Name Role Phone Kendall Sow MD Primary Care Provider [phone] Encounter Details Date Type Department Care Team (Late st Contact Info) Description 01/10/2014 Documentation EM Family Medicine [address] [place] [address] Family Medicine, Physician [address] [place], [place] [phone] Social History Tobacco Use Types Packs/Day Years [...] on filedocumented in this encounter Care Teams Agricultural Extension Specialist Relationship Specialty Start Date End Date Kendall Sow MD [address] [place] [address] PCP - General 01/07/17 09/14/22 documented as of this encounter
--- OUTSIDE RECORDS SUMMARY | 2025-03-14 14:57 | XMS_ITS | Patient Health Record ---
Author Organization Wayne Bain MD Address [address] [place], [place] [id number] Care Team Providers Care Finnish Rubber Name Role Phone Wayne Bain Primary Care Provider Allergies No Known Allergies Results Component Value Reference Range Notes Complete Blood Count Auto Di ff (Not yet reviewed by provider) Interpretation: Performing Lab:[facility], [address] [place] [phone] Notes/Report: White Blood Count 10.8 4.8-10.8 X10*3/uL Red Blood Count 4.65 4.60-5.80 X10*6/uL Hemoglobin 13.5 14.0-18.0 g/dl Hematocrit 41.2 42.0-52.0 % Mean Corpuscular Volume 88.6 80.0-98.0 fL Mean Corpuscular Hemoglobin 29.0 27.0-33.0 pg Mean Corpuscular HGB Conc 32.8 31.0-36.0 g/dl Red Cell Distribution Width 12.9 11.0-16.0 % Platelet Count 402 160-400 X10*3/uL Mean Platelet Volume 10.2 9.4-12.4 fL Neutrophils Percent Auto 64.0 45-73 % Imm Gran Pct Auto 0.6 0.0-0.4 % Lymphocytes Percent Auto 24.6 20-40 % Monocytes Percent Auto 7.3 2-11 % Eosinophils Percent Auto 2.7 0-4 % Basophils Percent Auto 0.8 0-2 % NRBC Pct Auto 0.0 0.0-0.2 /100WBC Neutrophils Absolute Auto 6.9 2.0-8.3 x10*3/u L Imm Gran Abs Auto 0.06 0.00-0.03 X10*3/uL Lymphocytes Absolute Auto 2.6 1.2-4.9 X10*3/u L Monocytes Absolute Auto 0.8 0.1-1.2 X10*3/uL Eosinophils Absolute Auto 0.3 0.0-0.4 X10*3/u L Basophils Absolute Auto 0.1 0.0-0.2 X10*3/uL NRBC Abs Auto 0.000 0.0-0.012 X10*3/uL Comprehensive [place]. Panel Fa st (Not yet reviewed by provider) Interpretation: Performing Lab:[facility], [address] [place] [phone] Notes/Report: Sodium 140 135-145 mmol/L Potassium 4.2 3.3-5.1 mmol/L Chloride 108 96-108 mmol/L Carbon Dioxide 26 22-29 mmol/L Anion Gap 10 12-20 Blood Urea Nitrogen 12 9-16 mg/dL Creatinine 0.76 0.5-1.4 mg/dL Estimated Glomerular Filt Rate > 60 Chronic Kidney Disease: Estimated GFR < 60 mL/min/1.73m2 Severe Kidney Disease: Estimated GFR < 15 mL/min/1.73m2 Glucose Fasting 92 60-99 mg/dL Calcium 9.3 8.4-10.2 mg/dL Bilirubin Total 0.3 0.0-1.0 mg/dL Aspartate Amino Transferase 36 5-37 U/L Alanine Aminotransferase 41 0-40 U/L Total Protein 8.2 6.5-8.0 g/dL Albumin Level 4.2 3.5-5.0 g/dL Alkaline Phosphatase 68 39-117 U/L Lipid Panel (Not yet reviewe d by provider) Interpretation: Performing Lab:[facility], [address] [place] [phone] Notes/Report: Triglycerides 97 <150 mg/dL Desirable Triglyceride: less than 150 mg/dL Borderline High Triglyceride 150-199 mg/dL High Triglyceride: 200-499 mg/dL Very High Triglyceride: greater than or equal to 5OO mg/dL Cholesterol 133 <200 mg/dL Desirable Cholesterol: less than 200 mg/dL Borderline High Cholesterol: 200-239 mg/dL High Cholesterol: greater than 239 mg/dL LDL Cholesterol Calculated 82 <100 mg/dL Desirable LDL: less than 100 mg/dL Near Optimal/Above Optimal LDL: 110-129 mg/dL Borderline High LDL: 130-159 mg/dL High LDL: 160-189 mg/dL Very High LDL: greater than or equal to 190 mg/dL HDL Cholesterol 32 >40 mg/dL Desirable HDL: greater than 40 mg/dL Note: This HDL assay may give artificially low results in patients with liver disease. UA ClnCatch+Micro w/rflx Cul t (Not yet reviewed by provider) Interpretation: Performing Lab:[facility], [address] [place] [phone] Notes/Report: Urine, Clean Catch Color Urine Yellow Appearance Urine Clear PH 5.5 5.0-9.0 Glucose Urine UA Negative Negative mg/dL Urine Blood Negative Negative Specific [place] - Urine 1.020 1.005-1.025 Urine Protein Negative Neg-Trace mg/dL Urine Ketones Negative Negative mg/dL Nitrite Urine Negative Negative Leukocyte Esterase Urine Negative Negative RBC Urine 0-2 0-2 /HPF WBC Urine 0-5 0-5 /HPF Squamous Epithelial Cell Urine 0-2 0-2 /HPF Bacteria Urine None Seen None Seen Hyaline Casts Urine 0-2 0-2 /LPF Reason For Referral Reason paronychia of big [...] Referral Priority Routine Referral Appointment Date 09/27/2024 Reason rash Diagnosis 1 Rash (R21) Referral Organization Wayne Bain MD Referring Provider First Name Wayne Referring Provider Last Name Odell Referring Provider Speciality Internal M edicine Referred Provider LACI LOVETT Referred Provider Specialty Allergy/Immu nology General Notes Giana Blanchard 0 08/14/2024 03:09:19 PM >referral info faxed, Giana Blanchard 09/07/2024 01:11:34 PM > booked in [place] office [address], Giana Blanchard 09/07/2024 01:39:23 PM > patient called with info and mailed Referral Priority Routine Referral Appointment Date 09/20/2024 Reason please dorina spencer Diagnosis 1 Ingrown toenail (L60 .0) Referral Organization Wayne Bain MD Referring Provider First Name Wayne Referring Provider Last Name Odell Referring Provider Speciality Internal M edicine Referred Provider [facility] Referred Provider Specialty Podiatry General Notes Giana Blanchard 0 10/01/2024 10:57:45 AM > patient is aware of appt Referral Priority Routine Referral Appointment Date 10/12/2024 Medications Medication SIG (Take, Route, Frequency, Duration) [...] a day for 30 day(s) 07/05/2023 Not-Taking Immunizations Vaccine Route Administration Date Status Comme nts Flu Vaccine Unknown 03/15/2017 Administered pt was the vaccine at work. Fluarix Quadrivalent Unknown 04/16/2021 Administered [facility] SARS-COV-2 Moderna Unknown 04/16/2021 Administered SARS-COV-2 Moderna Unknown 05/07/2021 Administered [facility] Fluarix Quadrivalent Unknown 04/16/2021 Administered Fluarix Quadrivalent IM Intramuscular 02/26/2022 Administe red Fluarix Quadrivalent IM Intramuscular 02/08/2023 Administe red Social History Tobacco Use: Social History Observation [...] Section Notes: vapes 3-4 times a day vapes 3-4 times a day vapes 3-4 times a day vapes 3-4 times a day vapes 3-4 times a day vapes 3-4 times a day Problems Problem Type SNOMED Code ICD Code Onset Dates Problem Status W/U Status Risk Notes Problem 37864865 Balanitis (N48.1) Active confirmed Problem 9307426 Psoriasis (L40.9) Active confirmed Problem 161042176 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.6) Active confirmed Problem 734129584 Morbid obesity (E66.01) Active confirmed Problem 475863220 Leukocytosis, unspecified type (D72.829) Active confirmed Problem 24292691 Peptic ulcer disease (K27.9) Active confirmed Problem 517626357 BMI 50.0-59.9, adult (Z68.43) Active confirmed Problem 420528861 Plaque psoriasis (L40.0) Active confirmed Vital Signs Blood pressure diastolic 60 mm Hg 09/18/2024 Height 57.50 in 09/18/2024 Blood pressure systolic 112 mm Hg 09/18/2024 Weight 271 lbs 09/18/2024 BMI 57.62 kg/m2 09/18/2024 Encounters Encounter Location Date Provider Diagnosis Wayne Bain MD [address] [place], [place] [phone] 03/14/2025 Wayne Bain Blood tests for routine general physical examination Z00.00 ; Low HDL (under 40) E78.6 and Leukocytosis, unspecified type D72.829 Wayne Bain MD [address] [place], [place] [id number] 03/19/2024 Wayne Bombardier Plaque psoriasis L40.0 ; Annual physical exam Z00.00 ; Ingrown toenail L60.0 ; Subungual hematoma of fingernail, initial encounter S60.10XA and Depression screening Z13.31 Wayne Bain MD [address] [place] [id number] 08/14/2024 Waynejatinder Hoganmima Paronychia L03.019 Wayne Bain MD [address] [place] [address] Drive [address] [place] [id number] 09/18/2024 Wayne Abarcaadriamima Psoriasis L40.9 Assessments Encounter Date Diagnosis (ICD Code) Assessment Notes Treatment Notes Treatment Clinical Notes Section Notes 03/14/2025 Blood tests for routine general physical examination (ICD-10 - Z00.00) 03/19/2024 Plaque psoriasis (ICD-10 - L40.0) needs to make appt with derm/ info given to patient for [facility] , will cntinue current regiment 03/19/2024 Annual physical exam (ICD-10 - Z00.00) labs reviewed and discussed with patient 08/14/2024 Paronychia (ICD-10 - L03.019) referral to dr ana leon at [place] 09/18/2024 Psoriasis (ICD-10 - L40.9) gave radha rosales number to see if he can get in/ info given to patient 03/14/2025 Low HDL (under 40) (ICD-10 - E78.6) 03/19/2024 Ingrown toenail (ICD-10 - L60.0) will place on ab while awaiting podiatry evaluation 03/14/2025 Leukocytosis, unspecified type (ICD-10 - D72.829) 03/19/2024 Subungual hematoma of fingernail, initial encounter (ICD-10 - S60.10XA) pinched it in a door at work. told him it should go away in about 6 months 03/19/2024 Depression screening (ICD-10 - Z13.31) negative screen Plan Of Treatment Pending Test Test Name Order Date XR GI SERIES 12/09/2020 Complete Blood Count Auto Diff 5 Complete Blood Count Auto Diff 5 Comprehensive [place]. Panel Fast 5 Comprehensive [place]. Panel Fast 5 Lipid Panel 03/14/2025 Lipid Panel 03/14/2025 UA ClnCatch+Micro w/rflx Cult 03/14/2025 UA ClnCatch+Micro w/rflx Cult 03/14/2025 Next Appt Details Provider Name:Wayne Thomas ier, 03/21/2025 02:30:00 PM, [address] [place] [address], [facility] [address], [place], [place], [phone], Insurance Providers Payer Name Payer Address Payer Phone Subscriber Number Group Number Insured Name Patient Relationship to Insured Coverage Start Date Coverage End Date [facility] [address] [address] [place] [address] [id number] Markel Cardenas Self - patient is the insured
--- OUTSIDE RECORDS SUMMARY | 2025-03-14 14:57 | XMS_ITS | Encounter Summary ---
Author Organization [facility] Address [address] [place] [address] Phone Care Team Providers Care B2B Appointment Setter Name Role Phone Kendall Sow MD Primary Care Provider [phone] Encounter Details Date Type Department Care Team (Late st Contact Info) Description 01/16/2013 Documentation EM Family Medicine [address] [place] [address] Family Medicine, Physician [address] [place], [place] [phone] Social History Tobacco Use Types Packs/Day Years [...] on filedocumented in this encounter Care Teams B2B Appointment Setter Relationship Specialty Start Date End Date Kendall Sow MD [address] [place] [address] PCP - General 01/07/17 09/14/22 documented as of this encounter
--- OUTSIDE RECORDS SUMMARY | 2025-03-14 14:57 | XMS_ITS | Encounter Summary ---
Author Organization [facility] Address [address] [place] [address] Phone Care Team Providers Care Filter Changer Name Role Phone Kendall Sow MD Primary Care Provider [phone] Encounter Details Date Type Department Care Team (Late st Contact Info) Description 01/16/2013 Documentation EM Family Medicine [address] [place] [address] Family Medicine, Physician [address] [place], [place] [phone] Social History Tobacco Use Types Packs/Day Years [...] on filedocumented in this encounter Care Teams Filter Changer Relationship Specialty Start Date End Date Kendall Sow MD [address] [place] [address] PCP - General 01/07/17 09/14/22 documented as of this encounter
--- OUTSIDE RECORDS SUMMARY | 2025-03-14 14:57 | XMS_ITS | Clinical Summary ---
Author Organization [facility] Address [address] [place] [address] Phone Care Team Providers Care Spinning And Winding Supervisor Name Role Phone Wayne Bain MD Primary Care Provider Allergies No known active allergies Medications hydrocortisone acetate 1 % Crea 1 Application . 01/11/2023 Active albuterol 90 mcg/actuation inhaler Inhale 2 puffs into the lungs every 6 (six) hours as needed for wheezing. 18 g 04/10/2024 Active Active Problems Problem Noted Date Diagnosed Date Ingrown toenail of right foot 09/27/2024 Acute bronchitis 04/27/2024 Encounters Date Type Department Care Team Description 03/01/2025 1:23 PM EDT - 03/01/2025 11:59 PM EDT Hospital Encounter [facility] [address] [place] [address] Davis León MD, PhD Discharge Disposition: Home or Self Care from Last 3 Months Immunizations Immunization Administration Dates Next Due COVID-19 (Pre-03/21) Moderna Vaccine, mRNA, PF 1 07/08/2020,04/16/2021 INFLUENZA, SPLIT VIRUS, TRIVALENT PF 03/01/2025, 03/01/2024 Influenza Quadrivalent Preservative Free IM 01/28 MMR 01/07/2023 Td (adult),2 Lf Tetanus Toxoid, PF, Adsorbed Tdap 10/20/2015 Social History Tobacco Use Types Packs/Day Years Used Date Smoking Tobacco: Never Passive Smoke Exposure: Never Smokeless Tobacco: Current Tobacco Cessation:Ready to Q uit: Not Asked; Counseling Given: Not Answered Comments:Vaping Alcohol Use Standard Drinks/Week Comments Not Currently 0 (1 standard drink = 0.6 oz pur e alcohol) Education Answer Date Recorded Are you interested in more education? Not on cristian e 01/03/2023 Are you concerned about learning? Not on file 01/03/2023 No 01/03/2023 No 01/03/2023 Digital Access Answer Date Recorded No 01/03/2023 No 01/03/2023 Reliable internet access at home? Not on file 01/03/2023 Device with a working camera? Not on file Sex and Gender Information Value Date Recorded Sex Assigned at Not on file Legal Sex Male 10:53 AM EDT Gender Identity Not on file Sexual Orientation Not on file Last Filed Vital Signs Vital Sign Reading Time Taken Comments Blood Pressure 137/82 04/27/2024 12:17 PM EST Pulse 82 04/27/2024 12:17 PM EST Temperature 36.7 C (98 F) 04/27/2024 12:17 PM EST Respiratory Rate 16 04/27/2024 12:17 PM EST Oxygen Saturation 96% 04/27/2024 12:17 PM EST Inhaled Oxygen Concentration - - Weight 120.2 kg (265 lb) 09/27/2024 3:26 PM EDT Height 170.2 cm (5' 7 ) 09/27/2024 3:26 PM EDT Body Mass Index 41.5 09/27/2024 3:26 PM EDT Plan of Treatment Health Maintenance Due Date Last Done Comments DEPRESSION SCREENING 2007 COVID-19 VACCINE (3 - 2024-2 6 season) 2025 05/07/2021, 04/16/2021 Adult Td,Tdap Booster 10/18/2026 10/18/2016 , 10/20/2015, 02/14/2006 SMOKING STATUS SCREENING (On ce After 26 Yrs) Completed 04/27/2024 HEPATITIS C SCREENING Completed 03/01/2025 HIV ONE-TIME SCREENING (18-6 5 YEARS) Completed 03/01/2025 INFLUENZA VACCINE Completed 03/01/2025, 03/01/2024, 02/08/2023 HIB VACCINES Aged Out No longer eligi ble based on patient's age to complete this topic MENINGOCOCCAL VACCINES (ACWY) Aged Out No longer eligible based on patient's age to complete this topic MENINGOCOCCAL VACCINES (B) Aged Out N o longer eligible based on patient's age to complete this topic PNEUMOCOCCAL VACCINES (0-49 years) Aged Out No longer eligible b ased on patient's age to complete this topic Medical Devices Not on file Procedures Procedure Name Priority Date/Time Associated Diagnosis Comments ALANINE AMINOTRANSFERASE (ALT) Routine 03/01/2025 1:30 PM EDT Psoriasis vulgaris ASPARTATE AMINOTRANSFERASE (AST) Routine 03/01/2025 1:30 PM EDT Psoriasis vulgaris CBC AND DIFFERENTIAL Routine 03/01/2025 1:30 PM EDT Psoriasis vulgaris CREATININE/EGFR Routine 03/01/2025 1:30 PM EDT Psoriasis vulgaris HC TB CELL MEDIATED ANTIGN RESPNSE GAMMA INTERFERON Routine 03/01/2025 1:30 PM EDT Psoriasis vulgaris HEPATITIS B SURFACE ANTIBODY Routine 03/01/2025 1:30 PM EDT Psoriasis vulgaris HEPATITIS A ANTIBODY, IGM Routine 03/01/2025 1:30 PM EDT HIV-1/2 ANTIGEN/ANTIBODY Routine 025 1:30 PM EDT Psoriasis vulgaris HEPATITIS A ANTIBODY, TOTAL Routine 03/01/2025 1:30 PM EDT Psoriasis vulgaris HEPATITIS C ANTIBODY, QUALITATIVE Routine 03/01/2025 1:30 PM EDT Psoriasis vulgaris from Last 3 Months Results * Quantiferon-TB Gold (03/01/2025 1:30 PM EDT) [facility] QuantiFERON-TB Gold Negative Negative [facility] Comment: (NOTE) No interferon-gamma response to M. tuberculosis antigens was detected. Latent infection with M. tuberculosis is unlikely. A single negative result does not exclude infection with M. tuberculosis. In patients at high risk for M.tuberculosis infection, a second test should be considered in accordance with the 2017 ATS/IDSA/CDC Clinical Practice Guidelines for Diagnosis of Tuberculosis in Adults and Children [Juan Jose BOND et. al. Clin. Infect. Dis. 2017;64(2):111-115]. The reference range for the 'TB1 Ag minus Nil Result' and 'TB2 Ag minus Nil Result' is an Interferon-gamma level <0.35 IU/mL. TB1 Ag minus Nil 0.00 IU/mL [facility] TB2 Ag minus Nil NEG 0.01 IU/mL [facility] [address] Mitogen minus Nil 9.97 IU/mL [facility] MED[facility] [place] Nil Result 0.03 IU/mL [facility] [place] Blood 03/01/2025 1:30 PM EDT 03/01/2025 1:36 PM EDT Davis León MD, PhD LAB BLOOD ORDERABLES F inal Result Performing Organization Address [facility] Co de Phone Number [facility] MED/PATH [place] [address] [place] [address] * (ABNORMAL) HEPATITIS A ANTIBODY, TOTAL (03/01/2025 1:30 PM EDT) Pathologist [facility] HAV TOTAL AB Reactive(A ) NON-REACTI VE [facility] Blood 03/01/2025 1:30 PM EDT 03/01/2025 1:36 PM EDT Davis León MD, PhD LAB BLOOD ORDERABLES F inal Result Performing Organization Address City/[facility]/ZIP Co de Phone Number [facility] [address] [place] [address] * Creatinine/eGFR (03/01/2025 1:30 PM EDT) CREATININE 0.60 0.5 - 1.5 mg/dL [facility] EGFR >120 >59 mL/min/1.7 3m2 [facility] Comment:Estimated glomerular filtration rate calculated using the CKD-EPI refit equation. Blood 03/01/2025 1:30 PM EDT 03/01/2025 1:36 PM EDT Davis León MD, PhD LAB BLOOD ORDERABLES F inal Result Performing Organization Address [facility]/ZIP Co de Phone Number [address] [address] * Hepatitis A antibody, IgM (03/01/2025 1:30 PM EDT) Hepatitis A Antibody, IgM NON-REACTI VE NON-REACTI VE [facility] 03/01/2025 1:30 PM EDT 03/01/2025 1:36 PM EDT Davis León MD, PhD LAB BLOOD ORDERABLES F inal Result Performing Organization Address [facility] Co de Phone Number [address] [phone] * HIV-1/2 antigen/antibody (03/01/2025 1:30 PM EDT) HIV-1/2 Antigen/Antibo dy NON-REACTI VE NON-REACTI VE [facility] Blood 03/01/2025 1:30 PM EDT 03/01/2025 1:37 PM EDT Davis León MD, PhD LAB BLOOD ORDERABLES F inal Result Performing Organization Address [facility] Co de Phone Number [address] [address] * Hepatitis C antibody, qualitative (03/01/2025 1:30 PM EDT) HCV NON-REACTIV E NON-REACTI VE [facility] Blood 03/01/2025 1:30 PM EDT 03/01/2025 1:36 PM EDT Davis León MD, PhD LAB BLOOD ORDERABLES F inal Result [address] [address] * Hepatitis B surface antibody (03/01/2025 1:30 PM EDT) HBV SURFACE ANTIBODY NON-REACTI VE [facility] Comment: Unvaccinated: Non Reactive Vaccinated: Reactive Blood 03/01/2025 1:30 PM EDT 03/01/2025 1:36 PM EDT us Davis León MD, PhD LAB BLOOD ORDERABLES F inal Result Performing Organization Address City/[facility]/ZIP Co de Phone Number [address] [address] * (ABNORMAL) CBC and differential (03/01/2025 1:30 PM EDT) WBC 11.08(H) 4.00 - 11.00 K/uL [facility] RBC 4.75 4.50 - 5.90 M/uL [facility] HGB 13.8 13.5 - 17.5 g/dL [facility] HCT 41.6 41.0 - 53.0 % [facility] PLT 403 150 - 450 K/uL [facility] MCV 87.6 80.0 - 100.0 fL [facility] MCH 29.1 27.0 - 31.0 pg [facility] MCHC 33.2 32.0 - 36.0 g/dL [facility] RDW 12.8 11.5 - 14.5 % [facility] MPV 10.0 8.4 - 12.0 fL [facility] NRBC 0.00 0.00 /100 WBCs [facility] ABSOLUTE NRBC 0.00 0.00 K/uL [facility] DIFF METHOD Auto [facility] NEUTS 69.2 48.0 - 76.0 % [facility] LYMPHS 21.3 18.0 - 41.0 % [facility] MONOS 6.8 4.0 - 11.0 % [facility] EOS 1.7 0.0 - 5.0 % [facility] BASOS 0.5 0.0 - 1.5 % [facility] Granulocytes, immature (%) 0.5 0.0 - 0.9 % [facility] ABSOLUTE NEUTS 7.66(H) 1.92 - 7.60 K/uL [facility] ABSOLUTE LYMPHS 2.36 0.72 - 4.10 K/uL [facility] ABSOLUTE MONOS 0.75 0.16 - 1.10 K/uL [facility] ABSOLUTE EOS 0.19 0.00 - 0.50 K/uL [facility] ABSOLUTE BASOS 0.06 0.00 - 0.15 K/uL [facility] Granulocytes, immature 0.06 0.00 - 0.09 K/uL [facility] Blood 03/01/2025 1:30 PM EDT 03/01/2025 1:36 PM EDT Davis León MD, PhD LAB BLOOD ORDERABLES F inal Result Performing Organization Address City/[facility]/ZIP Co de Phone Number [address] [address] * Alanine aminotransferase (ALT) (03/01/2025 1:30 PM EDT) ALT 24 0 - 40 U/L [facility] Blood 03/01/2025 1:30 PM EDT 03/01/2025 1:36 PM EDT Davis León MD, PhD LAB BLOOD ORDERABLES F inal Result Performing Organization Address City/[facility]/ZIP Co de Phone Number [address] [phone] * Aspartate aminotransferase (AST) (03/01/2025 1:30 PM EDT) AST 19 0 - 37 U/L [facility] Blood 03/01/2025 1:30 PM EDT 03/01/2025 1:36 PM EDT Davis León MD, PhD LAB BLOOD ORDERABLES F inal Result [facility] [address] [place] [address] from Last 3 Months Insurance WELLSENSE NON NSPG PCP SILVER CLARITY CONNECTORCARE WELLS[employer] NON NSPG PCP SILVER CLARITY CONNECTORCARE WE[employer] NON NSPG PCP SILVER CLARITY CONNECTORCARE WELLS[employer] NON NSPG PCP SILVER CLARITY CONNECTORCARE WELLSENSE NON NSPG PCP SILVER CLARITY CONNECTORCARE WELLSENSE NON NSPG PCP SILVER CLARITY CONNECTORCARE Care Teams Spinning And Winding Supervisor Relationship Specialty Start Date End Date Wayne Bain MD [address] [place] [address] Dr [address] [place] [address] PCP - General Internal Medicine 01/03/23 Additional Source Comments The information contained in this document represents components of the legal health record. It is not the complete legal health record.[facility]
--- OUTSIDE RECORDS SUMMARY | 2025-03-14 14:57 | XMS_ITS | Encounter Summary ---
Author Organization [facility] Address [address] [place] [address] Phone Care Team Providers Care Face Painter Name Role Phone Kendall Sow MD Primary Care Provider [phone] Encounter Details Date Type Department Care Team (Late st Contact Info) Description 05/10/2012 Documentation EM Family Medicine [address] [place] [address] Family Medicine, Physician [address] [place], [place] [phone] Social History Tobacco Use Types Packs/Day Years [...] on filedocumented in this encounter Care Teams Face Painter Relationship Specialty Start Date End Date Kendall Sow MD [address] [place] [address] PCP - General 01/07/17 09/14/22 documented as of this encounter
--- OUTSIDE RECORDS SUMMARY | 2025-03-14 14:57 | XMS_ITS | Encounter Summary ---
Author Organization [facility] Address [address] [place] [address] Phone Care Team Providers Care Target Protection Specialist Name Role Phone Kendall Sow MD Primary Care Provider [phone] Encounter Details Date Type Department Care Team (Late st Contact Info) Description 01/04/2012 Documentation EM Family Medicine [address] [place] [address] Family Medicine, Physician [address] [place], [place] [phone] Social History Tobacco Use Types Packs/Day Years [...] on filedocumented in this encounter Care Teams Target Protection Specialist Relationship Specialty Start Date End Date Kendall Sow MD [address] [place] [address] PCP - General 01/07/17 09/14/22 documented as of this encounter
--- OUTSIDE RECORDS SUMMARY | 2025-03-14 14:57 | XMS_ITS | Encounter Summary ---
Author Organization [facility] Address [address] [place] [address] Phone Care Team Providers Care Mechanic/Welder Name Role Phone Kendall Sow MD Primary Care Provider [phone] Encounter Details Date Type Department Care Team (Late st Contact Info) Description 01/21/2015 Documentation EM Family Medicine [address] [place] [address] Family Medicine, Physician [address] [place], [place] [phone] Social History Tobacco Use Types Packs/Day Years [...] on filedocumented in this encounter Care Teams Mechanic/Welder Relationship Specialty Start Date End Date Kendall Sow MD [address] [place] [address] PCP - General 01/07/17 09/14/22 documented as of this encounter
--- OUTSIDE RECORDS SUMMARY | 2025-03-14 14:57 | XMS_ITS | Encounter Summary ---
Author Organization [facility] Address [address] [place] [address] Phone Care Team Providers Care Electronic Equipment Maint Tech Name Role Phone Kendall Sow MD Primary Care Provider [phone] Encounter Details Date Type Department Care Team (Late st Contact Info) Description 01/04/2012 Documentation EM Family Medicine [address] [place] [address] Family Medicine, Physician [address] [place], [place] [phone] Social History Tobacco Use Types Packs/Day Years [...] on filedocumented in this encounter Care Teams Electronic Equipment Maint Tech Relationship Specialty Start Date End Date Kendall Sow MD [address] [place] [address] PCP - General 01/07/17 09/14/22 documented as of this encounter
--- OUTSIDE RECORDS SUMMARY | 2025-03-14 14:57 | XMS_ITS | Encounter Summary ---
Author Organization [facility] Address [address] [place] [address] Phone Care Team Providers Care Environmental Conflict Manager Name Role Phone Kendall Sow MD Primary Care Provider [phone] Encounter Details Date Type Department Care Team (Late st Contact Info) Description 05/10/2012 Documentation EM Family Medicine [address] [place] [address] Family Medicine, Physician [address] [place], [place] [phone] Social History Tobacco Use Types Packs/Day Years [...] on filedocumented in this encounter Care Teams Environmental Conflict Manager Relationship Specialty Start Date End Date Kendall Sow MD [address] [place] [address] PCP - General 01/07/17 09/14/22 documented as of this encounter
--- OUTSIDE RECORDS SUMMARY | 2025-03-14 14:57 | XMS_ITS | Encounter Summary ---
Author Organization [facility] Address [address] [place] [address] Phone Care Team Providers Care Endodontics Dentist Name Role Phone Kendall Sow MD Primary Care Provider [phone] Encounter Details Date Type Department Care Team (Late st Contact Info) Description 01/10/2014 Documentation EM Family Medicine [address] [place] [address] Family Medicine, Physician [address] [place], [place] [phone] Social History Tobacco Use Types Packs/Day Years [...] on filedocumented in this encounter Care Teams Endodontics Dentist Relationship Specialty Start Date End Date Kendall Sow MD [address] [place] [address] PCP - General 01/07/17 09/14/22 documented as of this encounter
--- OUTSIDE RECORDS SUMMARY | 2025-03-14 14:57 | XMS_ITS | Encounter Summary ---
Author Organization [facility] Address [address] [place] [address] Phone Care Team Providers Care Expeller Operator Name Role Phone Kendall Sow MD Primary Care Provider [phone] Encounter Details Date Type Department Care Team (Late st Contact Info) Description 01/16/2013 Documentation EM Family Medicine [address] [place] [address] Family Medicine, Physician [address] [place], [place] [phone] Social History Tobacco Use Types Packs/Day Years [...] on filedocumented in this encounter Care Teams Expeller Operator Relationship Specialty Start Date End Date Kendall Sow MD [address] [place] [address] PCP - General 01/07/17 09/14/22 documented as of this encounter
--- OUTSIDE RECORDS SUMMARY | 2025-03-14 14:57 | XMS_ITS | Encounter Summary ---
Author Organization [facility] Address [address] [place] [address] Phone Care Team Providers Care Regional Account Manager Name Role Phone Kendall Sow MD Primary Care Provider [phone] Encounter Details Date Type Department Care Team (Late st Contact Info) Description 01/16/2013 Documentation EM Family Medicine [address] [place] [address] Family Medicine, Physician [address] [place], [place] [phone] Social History Tobacco Use Types Packs/Day Years [...] on filedocumented in this encounter Care Teams Regional Account Manager Relationship Specialty Start Date End Date Kendall Sow MD [address] [place] [address] PCP - General 01/07/17 09/14/22 documented as of this encounter
== END 2025-03-14 11:34 | disposition home or self-care (01) ==
LOC: HO.LNP 11:33
PROVIDERS: Visit Provider Internal Medicine
DX: Z00.00 Encounter for general adult medical examination without abnormal findings (principal); D72.829 Elevated white blood cell count, unspecified; E78.6 Lipoprotein deficiency
CPT/HCPCS: 80053; 80061; 81001; 85025